=== PATIENT | female | born 2000 | race Caucasian/White ===

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

== ENCOUNTER 2019-03-17 04:49 | Observation (INO) ==
--- NOTE | 2019-03-17 05:20 | Emergency Department Note ---
ED Disposition Condition on Discharge: Serious - Critical Care Critical Care Time: Yes Total Critical Care Time: 50 Vital system(s) involved:: Central Nervous System My critical care processes included: Assessment & monitoring of V/S, Initial and Re-exams, Data Review/Interpretation, Coordinating Care, Medication Orders and management, Documentation <CarlozdianaBradley - Last Filed: 03/17/19 08:12> Time of Disposition: 09:17 - Critical Care Critical Care Time: No <Chato Manjarrez - Last Filed: 03/17/19 09:18> Clinical Impression: Meningitis Disposition: Admitted as Observation Referrals: Provider,Referral, [Primary Care Provider] - Attestation: On 03/17/19, the high probability of a clinically significant, sudden or life threatening deterioration of the following system(s) required my full and direct attention, intervention and personal management. The time I documented below is in addition to time spent performing reported procedures but includes the following listed in this critical care notation. Medical Decision Making - Horace Inquiry Pt receiving controlled substance: Yes Horace was queried for this patient: No Reason not queried -: Emergent pt cond-no time Risks and benefits of using a controlled substance: were not discussed with pt by me - Lab Data Result diagrams: 03/17/19 05:15 03/17/19 05:15 - Radiology Data #1 Image(s): Chest Image Reviewed: Yes I reviewed the patient's radiology image Preliminary Findings: Normal/NAD - Physician Consults Physician Consulted: Abel [facility] Time: 08:00 Reason -: Transfer to another facilty Comment/Response: is on diversion, cannot except transfer. records coordinator will not even put her on a wait list because they do not expect beds for days. Additional Consult: Audi dawson Ho[facility] Time: 08:05 Reason -: Transfer to another facilty Comment/Response: Accepts patient for transfer, but bed availability is pending discharges. They will call back when a bed becomes available. It may be this afternoon. Additional Consult: Swapnil Fuentes [facility] Time: 08:10 Reason -: Transfer to another facilty Comment/Response: Accepts patient, but they are currently at capacity. They will call back when a bed is available. <Bradley Son - Last Filed: 03/17/19 08:12> - Lab Data Lab results reviewed: Yes: I reviewed the patient's lab results. Result diagrams: 03/17/19 05:15 03/17/19 05:15 <JosselineChato ramirez - Last Filed: 03/17/19 09:18> Vital Signs: 03/17/19 04:49 03/17/19 05:19 03/17/19 05:49 Temperature 98.2 F Temperature Source Rectal Pulse Rate [Right Radial] 100 H 101 H 85 Respiratory Rate 28 H 16 Blood Pressure [Right Arm] 172/100 H 164/93 H 154/91 H Blood Pressure Mean [Right Arm] 124 116 112 Blood Pressure Source [Right Arm] Blood Pressure Position [Right Arm] 02 Sat by Pulse Oximetry 100 96 99 Oxygen Delivery Method Room Air Room Air Nasal Cannula Oxygen Flow Rate (LPM) 6 03/17/19 06:02 03/17/19 06:53 03/17/19 07:00 Temperature 98.8 F Temperature Source Axillary Pulse Rate [Right Radial] 80 71 121 H Respiratory Rate 19 16 24 Blood Pressure [Right Arm] 164/91 H 107/65 L Blood Pressure Mean [Right Arm] 115 79 Blood Pressure Source [Right Arm] Blood Pressure Position [Right Arm] 02 Sat by Pulse Oximetry 97 99 100 Oxygen Delivery Method Nasal Cannula Nasal Cannula Room Air Oxygen Flow Rate (LPM) 4 4 03/17/19 08:06 Temperature Temperature Source Pulse Rate [Right Radial] 119 H Respiratory Rate Blood Pressure [Right Arm] 90/33 L Blood Pressure Mean [Right Arm] 52 Blood Pressure Source [Right Arm] Automatic Cuff Blood Pressure Position [Right Arm] Right Lateral 02 Sat by Pulse Oximetry Oxygen Delivery Method Oxygen Flow Rate (LPM) - Lab Data Lab Results 03/17/19 05:15: WBC 9.6 D, RBC 5.26, Hgb 15.6, Hct 46.6, MCV 88.7, MCH 29.6, MCHC 33.4, RDW 12.9, Plt Count 236, MPV 11.7 H, Neut % (Auto) 49.8, Lymph % (Auto) 40.8, [place] % (Auto) 4.2, Eos % (Auto) 4.6, Baso % (Auto) 0.7, Neut # (Auto) 4.8, Lymph # (Auto) 3.9, [place] # (Auto) 0.4, Eos # (Auto) 0.4, Baso # (Auto) 0.1 03/17/19 05:15: Sodium 141, Potassium 3.6, Chloride 105, Carbon Dioxide 21, Anion Gap 18.6 H, BUN 10, Creatinine 1.11 H, Estimated Creat Clear 104, Estimated GFR 63, Est GFR ( Amer) 77, Glucose 112 H, Calcium 9.4, Total Bilirubin 0.6, AST 12 L, ALT 24, Alkaline Phosphatase 103, Total Protein 7.8, Albumin 4.0, Globulin 3.8 H, Albumin/Globulin Ratio 1.1, Salicylates 8.0, Acetaminophen 0 L, Plasma/Serum Alcohol 0 03/17/19 05:15: Lactate 1.6 03/17/19 05:38: Urine HCG, Qual Negative 03/17/19 05:38: Urine Opiates Screen Negative, Urine Methadone Screen Negative, Ur Barbituates Screen Negative, Ur Phencyclidine Scrn Negative, Ur Amphetamines Screen Negative, U Benzodiazepines Scrn Negative, Urine Cocaine Screen Positive H, U Marijuana (THC) Screen Positive H 03/17/19 05:55: CSF Volume 4, CSF Appearance Clear, CSF WBC 513 H, CSF RBC 2, CSF Mononuclear WBCs % 100, CSF Polynuclear WBCs % 0 03/17/19 05:55: CSF Glucose 62, CSF Total Protein 98.6 H Orders (Tests/Meds): ED MEDICATIONS Generic Name Dose Route Start Last Admin Trade Name Freq PRN Reason Stop Dose Admin Dexamethasone Sodium Phosphate 10 mg 03/17/19 14:00 Decadron 4mg/Ml 5ml Mdv IV 04/16/19 13:59 Q6H HOSEA Ceftriaxone Sodium 2 gm/ 100 mls @ 200 mls/hr 03/17/19 07:45 03/17/19 08:16 Sodium Chloride IV 03/31/19 07:44 200 mls/hr Q24H HOSEA Administration Protocol Vancomycin HCl 1,250 mg/ 250 mls @ 125 mls/hr 03/17/19 09:00 Sodium Chloride IV 03/31/19 08:59 Q12H HOSEA Acyclovir Sodium 800 mg/ 250 mls @ 250 mls/hr 03/17/19 16:00 Sodium Chloride IV 03/24/19 15:59 Q8H HOSEA Sodium Chloride 10 ml 03/17/19 05:41 03/17/19 09:08 Saline Flush 10ml Syringe IV 04/16/19 05:40 10 ml NEEDED PRN Administration Maintain IV Site Discontinued Medications Generic Name Dose Route Start Last Admin Trade Name Reji PRN Reason Stop Dose Admin Dexamethasone Sodium Phosphate 10 mg 03/17/19 07:34 03/17/19 07:50 Decadron 4mg/Ml 1ml Vial IV 03/17/19 07:35 10 mg ONCE ONE Administration Acyclovir Sodium 800 mg/ 250 mls @ 250 mls/hr 03/17/19 08:00 Sodium Chloride IV 03/17/19 08:59 ONCE ONE Ketamine HCl 60 mg 03/17/19 03:35 03/17/19 05:35 Ketamine 500mg/10ml Vial IV 03/17/19 03:36 60 mg ONCE ONE Administration Ketamine HCl 300 mg 03/17/19 04:55 03/17/19 04:55 Ketamine 500mg/10ml Vial IM 03/17/19 04:56 300 mg ONCE ONE Administration Lorazepam 1 mg 03/17/19 06:16 03/17/19 06:23 Ativan 2mg/Ml Vial IV 03/17/19 06:17 1 mg ONCE ONE Administration Lorazepam 1 mg 03/17/19 06:52 03/17/19 06:45 Ativan 2mg/Ml Vial IV 03/17/19 06:53 1 mg ONCE ONE Administration Lorazepam 1 mg 03/17/19 09:02 03/17/19 09:07 Ativan 2mg/Ml Vial IV 03/17/19 09:03 1 mg ONCE ONE Administration Miscellaneous 1 each 03/17/19 07:45 Vancomycin Consult Request * 04/16/19 07:44 [facility]ULT [facility] Sodium Chloride 1,000 ml 03/17/19 06:23 03/17/19 06:45 Sod Chlor 0.9% 1000ml Bag IV 03/17/19 06:24 1,000 ml BOLUS ONE Administration ORDERS Category Date Time Status Enterovirus,CSF PCR Routine Lab 03/17/19 08:07 Ordered Emre-Kenny Virus CSF/WB PCR Routine Lab 03/17/19 08:07 Ordered HSV 1/2 PCR, (CSF,WB,SERUM) Routine Lab 03/17/19 08:07 Ordered Blood Culture Stat Micro 03/17/19 05:15 Received CSF Culture & Gram Stain Stat Micro 03/17/19 05:55 Results - Physician Consults Other Consultation(s): [facility], accepts patient but is on bed availability delay. " It might be afternoon". Physician was Dr. Sachin Escudero came through the ED and is willing to admit her here. (Chato Manjarrez) Medical Decision Narrative: 8:00 AM: At shift change, I have discussed the patient with Dr. Manjarrez, who w ill assume care of the patient at this time. I have discussed all clinical information including history, physical and diagnostic study results. Preliminary diagnoses based on information available at this point have been recorded by me. Controlled substance administration and critical care statement are also preliminary, as of the time of handoff. (Bradley Son) General Adult HPI - General Mode of Arrival: EMS Limitations: No Limitations Description of Symptoms (Recalled from ER Triage Doc. by RN): pt arrives accompanied by pd. pt mother reports she started "flipping out" at approx 0330 this am. patient is out of control, verbally and physically violent with staff. completely non cooperative <Bradley Son - Last Filed: 03/17/19 08:12> <Chato Manjarrez - Last Filed: 03/17/19 09:18> - General Chief complaint: Altered Mental Status Stated complaint: Altered Mental Status Time Seen by Provider: 03/17/19 04:50 - History of Present Illness HPI narrative: Brought in by police and EMS. According to the boyfriend the patient awakened out of sleep tonight hysterical and crying. Patient is unable to give any history herself. When asked if she hurts anywhere she states that her back hurts and points to her lower back. She was seen in this emergency department yesterday morning for a migraine which she had had for 4 days. Boyfriend says that she has had migraines before, but never anything like this. She has never had a headache that lasted for days. She has been taking [id number] medications without relief. He says that she has been burning up, hot and sweaty, but temperature not taken. She has had some coughing, rhinorrhea, and vomited once. She had a negative head CAT scan and unremarkable blood work in the emergency department yesterday, no fever, and was treated with a "migraine cocktail". He says that she smokes marijuana, but otherwise no drug use, no alcohol use. She had a baby 4 months ago. No prescription medications. (Bradley Son) - Related Data Home Medications Medication Instructions Recorded Confirmed No Known Home Medications 03/16/19 03/17/19 Allergies Allergy/AdvReac Type Severity Reaction Status Date / Time latex Allergy Mild Verified 03/17/19 04:54 [facility] History - Hepatitis A Screen Drug use history?: Yes High risk sexual behaviors?: No History of sexually transmitted infection?: No Currently employed?: No Childcare worker?: No Do you have indoor plumbing?: Yes Do you have electricity?: Yes I have reviewed the patient's past medical history: Yes Medical History: Reports:: Anxiety, Asthma, Depression Denies:: Cancer, Diabetes Mellitus Type 1, Diabetes Mellitus Type 2, Gastroesophageal Reflux Disease(GERD), MRSA, Seizures Other Medical History: Denies: Anemia, Arthritis Comment: Complains about hip pain during , Other Surgeries: Yes: No Previous Surgery. No: Amputation: No Fractures: No Comment: wisdom teeth - Social History Smoking Status: Current every day smoker Tobacco Type: cigarettes # Packs/Day (cigarettes): 1 #Yrs smoked (if former smoker): 1 Alcohol Intake: never Substance Use Type: marijuana Occupational Status: unemployed, student Housing: apartment Household Members: significant other - Psychiatric History Expresses thoughts of harming self/others: None Suicide Plan Description: No Plan Pschychiatric History:: Reports:: Anxiety, Depression Family Hx:: Coronary Artery Disease, Diabetes, Hyperlipidemia Comment: LMP 2 weeks ago; periods are regular and of normal flow <Bradley Son - Last Filed: 03/17/19 08:12> - Hepatitis A Screen Attestation statement:: This patient has been screened for Hepatitis A risk factors. ROS Obtained: Yes unobtainable due to mental status <Bradley Son - Last Filed: 03/17/19 08:12> Physical Exam - General General appearance: alert - Head Head exam: atraumatic, normocephalic - Neck Neck exam: Present: normal inspection, trachea midline - Chest Chest inspection: Present: normal inspection, symmetric chest wall rise - Respiratory Respiratory exam: Present: normal lung sounds bilaterally. Absent: respiratory distress - Cardiovascular Cardiovascular exam: Present: regular rate, normal rhythm, normal heart sounds - Abdominal Exam Abdominal exam: Present: soft - Extremities Exam Extremities exam: Present: normal inspection - Neurological Exam Neurological exam: Present: alert - Psychiatric Psychiatric exam: Present: agitated, anxious - Skin Skin exam: Present: warm, dry. Absent: rash <Bradley Son - Last Filed: 03/17/19 08:12> - General Comment: Combative and hysterical. Stating "Oh my fucking god", "Just leave me the fuck alone". Fights when any examination or vital signs attempted. (Bradley Son) Procedures - Procedural Sedation Indication: other ASA Class: I Preparation: monitoring coordinator applied, pulse oximeter, supplemental O2 applied, suction/airway equipment at bedside, IV secured Ketamine: IV, IM Ketamine dose (mg): 80 (300 IM to obtain IV, 80 IV for LP) Patient Tolerated Procedure: well Complications: none <Bradley Son - Last Filed: 03/17/19 08:12> - Miscellaneous Procedure Procedure Performed: Lumbar Puncture Performed by: BRADLEY SON Consent: Consent obtained: Verbal Consent given by: Patient Risks discussed: Bleeding, headache, infection, pain and repeat procedure Alternatives discussed: No treatment Pre-procedure details: Procedure purpose: Diagnostic Preparation: Patient was prepped and draped in usual sterile fashion Procedure details: Lumbar space: L3-L4 interspace Patient position: Left lateral decubitus Needle gauge: 22 Needle type: [place] Needle length (in): 3.5 Number of attempts: 1 Fluid appearance: Clear Tubes of fluid: 4 Total volume (ml): 6 Post-procedure: Puncture site: Direct pressure applied Patient tolerance of procedure: Tolerated well, no immediate complications (Bradley Son)
[2019-03-17 05:54] LABS: Basophils # 0.1 K/mm3 (0-0.2); Basophils % 0.7 % (0.1-2.0); Eosinophils # 0.4 K/mm3 (0.0-0.4); Eosinophils % 4.6 % (0.1-12.0); Hematocrit 46.6 % (37.0-47.0); Hemoglobin 15.6 g/dL (12.2-16.2); Lymphocytes # 3.9 K/mm3 (0.7-4.5); Lymphocytes % 40.8 % (10-50); Mean Corpuscular HGB Conc 33.4 g/dL (31.8-35.4); Mean Corpuscular Hemoglobin 29.6 pg (27.0-31.2); Mean Corpuscular Volume 88.7 fl (81-99); Mean Platelet Volume 11.7 fl (7.4-10.4); Monocytes # 0.4 K/mm3 (0.1-1.0); Monocytes % 4.2 % (1.7-9.3); Neutrophils # 4.8 K/mm3 (1.8-7.8); Neutrophils % 49.8 % (37.0-80.0); Platelet Count 236 K/mm3 (142-424); Red Blood Count 5.26 M/mm3 (4.20-5.40); Red Cell Distribution Width 12.9 % (11.5-17.5); White Blood Count 9.6 K/mm3 (4.5-13.0)
[2019-03-17 06:07] LABS: Albumin/Globulin Ratio 1.1 (1.1-1.8); Anion Gap 18.6 mEq/L (5-15); Bilirubin,Total 0.6 mg/dL (0.2-1.0); Calcium 9.4 mg/dL (8.5-10.1); Globulin 3.8 gm/dl (1.3-3.2); Potassium 3.6 mmoL/L (3.5-5.1); Total Protein,Serum 7.8 gm/dL (6.4-8.2)
[2019-03-17 06:14] LABS: Amphetamine/Metha Screen,Urine Negative ng/mL (<1000); Barbiturates Screen,Urine Negative ng/mL (<200); Benzodiazepines Screen,Urine Negative ng/mL (<200); Cannabinoid Screen,Urine Positive ng/mL (<50); Cocaine Screen,Urine Positive ng/mL (<300); Methadone Screen,Urine Negative ng/mL (<300); Opiate Screen,Urine Negative ng/mL (<300); Phencyclidine Screen,Urine Negative ng/mL (<25)
[2019-03-17 06:34] LABS: Total Protein,CSF 98.6 mg/dL (15-45)
[2019-03-17 07:29] LABS: Appearance,CSF Clear (Clear); Red Blood Cell,CSF 2 cells/uL (0); White Blood Cell,CSF 513 cells/uL (0-5)
[2019-03-17 08:40] LABS: Polynuclear WBCs,CSF 0 %
--- NOTE | 2019-03-17 10:53 | Pharmacy Consult Notes ---
- Pharmacy Consult Date: 03/17/19 Time: 10:52 Referring provider: DR. KING Reason for Consult:: VANCOMYCIN DOSING Allergies and ADEs:: Allergies Allergy/AdvReac Type Severity Reaction Status Date / Time latex Allergy Mild Verified 03/17/19 04:54 Home Medications:: Home Medications Medication Instructions Recorded Confirmed Type Albuterol Sulfate [Albuterol HFA 1 - 2 puffs IH Q4-6H PRN 03/17/19 03/17/19 History Inhaler] Height: 1.55 m Weight: 84.17 kg Laboratory Results:: Laboratory Results - last 24 hr 03/17/19 05:15: WBC 9.6 D, RBC 5.26, Hgb 15.6, Hct 46.6, MCV 88.7, MCH 29.6, MCHC 33.4, RDW 12.9, Plt Count 236, MPV 11.7 H, Neut % (Auto) 49.8, Lymph % (Auto) 40.8, [place] % (Auto) 4.2, Eos % (Auto) 4.6, Baso % (Auto) 0.7, Neut # (Auto) 4.8, Lymph # (Auto) 3.9, [place] # (Auto) 0.4, Eos # (Auto) 0.4, Baso # (Auto) 0.1 03/17/19 05:15: Sodium 141, Potassium 3.6, Chloride 105, Carbon Dioxide 21, Anion Gap 18.6 H, BUN 10, Creatinine 1.11 H, Estimated Creat Clear 104, Estimated GFR 63, Est GFR ( Amer) 77, Glucose 112 H, Calcium 9.4, Total Bilirubin 0.6, AST 12 L, ALT 24, Alkaline Phosphatase 103, Total Protein 7.8, Albumin 4.0, Globulin 3.8 H, Albumin/Globulin Ratio 1.1, Salicylates 8.0, Acetaminophen 0 L, Plasma/Serum Alcohol 0 03/17/19 05:15: Lactate 1.6 03/17/19 05:38: Urine HCG, Qual Negative 03/17/19 05:38: Urine Opiates Screen Negative, Urine Methadone Screen Negative, Ur Barbituates Screen Negative, Ur Phencyclidine Scrn Negative, Ur Amphetamines Screen Negative, U Benzodiazepines Scrn Negative, Urine Cocaine Screen Positive H, U Marijuana (THC) Screen Positive H 03/17/19 05:55: CSF Volume 4, CSF Appearance Clear, CSF WBC 513 H, CSF RBC 2, CSF Mononuclear WBCs % 100, CSF Polynuclear WBCs % 0 03/17/19 05:55: CSF Glucose 62, CSF Total Protein 98.6 H Medical History: Reports:: Anxiety, Asthma, Depression Denies:: Cancer, Diabetes Mellitus Type 1, Diabetes Mellitus Type 2, Gastroesophageal Reflux Disease(GERD), MRSA, Seizures Assessment and Plan - Assessment and plan all Dx Assessment and Plan for all problems:: BASED ON PATIENT FACTORS, RECOMMEND INITIATING VANCOMYCIN IV AT 1,250MG EVERY 12 HOURS. PHARMACY WILL CONTINUE TO MONITOR AND WILL ADJUST DOSE APPROPRIATE. -JAMISON REYNOLDS, IMELDAD
[2019-03-17 10:59] LABS: Mononuclear WBCs,CSF 100 %
--- NOTE | 2019-03-17 10:59 | Pharmacy Consult Notes ---
[facility] Pharmacy VTE Monitoring - Patient Demographics Admission date: 03/17/19 Report Date: 03/17/19 Time: 10:58 Allergies/Adverse Reactions: Patient Allergies latex Allergy (Mild, Verified 03/17/19 04:54) Height: 1.55 m Weight: 84.17 kg Patient Problems: Current Active Problems Meningitis (Acute) - VTE Risk Labs: VTE Related Lab Results Hgb 15.6 g/dL (12.2-16.2) 03/17/19 05:15 Hct 46.6 % (37.0-47.0) 03/17/19 05:15 Plt Count 236 K/mm3 (142-424) 03/17/19 05:15 BUN 10 mg/dL (7-18) 03/17/19 05:15 Creatinine 1.11 mg/dL (0.55-1.02) H 03/17/19 05:15 Estimated Creat Clear 104 mL/min (50-200) 03/17/19 05:15 Was VTE Risk Assessment Performed: Yes VTE Score: 1 VTE Risk Level: Very Low Risk - Prophylaxis VTE Prophylaxis Ordered?: Yes Types of VTE Prophylaxis: TEDS Knee High Location of Applied Device: Bilateral Lower Extremeties - VTE Diagnosis Confirmed Treatment or plan recommended: Continue Current Treatment
[2019-03-17 15:35] VITALS: BP 128/62
--- NOTE | 2019-03-17 16:21 | H&P/Discharge Summary ---
General - General Admission date:: 03/17/19 Discharge date: 03/17/19 *Admission Date: 03/17/19 *Chief complaint: confusion *History of present illness: this wf was seen in the ed 1 day officer captain with her typical migraine with stable vs and nl head ct - treated as migraine and felt better - she did state it had been for 4 days and was somewhat different but no fever or focal changes -please see my ed note for labs and ct results - she left improved . According to the boyfriend the patient awakened out of sleep tonight hysterical and crying. Patient is unable to give any history herself. When asked if she hurts anywhere she states that her back hurts and points to her lower back. She was seen in this emergency department yesterday morning for a migraine which she had had for 4 days. Boyfriend says that she has had migraines before, but never anything like this. She has never had a headache that lasted for days. She has been taking [id number] medications without relief. He says that she has been b urning up, hot and sweaty, but temperature not taken. She has had some coughing, rhinorrhea, and vomited once. She had a negative head CAT scan and unremarkable blood work in the emergency department yesterday, no fever, and was treated with a "migraine cocktail". He says that she smokes marijuana, but otherwise no drug use, no alcohol use. She had a baby 4 months ago. No prescription medications. t arrives accompanied by pd. pt mother reports she started "flipping out" at approx 0330 this am. patient is out of control, verbally and physically violent with staff. completely non cooperative she was found to have abn lumbar puncture and uds later and was attempted to transfer last pm bur no beds and because of prob viral nature of lumbar puncture and concern for pt was admitted after i saw her this am- she was ox3 but still a little confused - [facility] History I have reviewed the patient's past medical history: Yes Medical History: Reports:: Anxiety, Asthma, Depression Denies:: Cancer, Diabetes Mellitus Type 1, Diabetes Mellitus Type 2, Gastroesophageal Reflux Disease(GERD), MRSA, Seizures *Have you ever received a pneumonia vaccine?: No *Have you received a flu vaccine this season?: No Other Medical History: Denies: Anemia, Arthritis Other Surgeries: Yes: No Previous Surgery, Appendectomy, Other (wisdom teeth extraction). No: Amputation: No Fractures: No - *Social History Educational Level: Attended High School Smoking Status: Current every day smoker Tobacco Type: cigarettes # Packs/Day (cigarettes): 1 #Yrs smoked (if former smoker): 1 Alcohol Intake: never Substance Use Type: marijuana *Occupational Status:: student Housing: apartment Household Members: significant other *Travel in the last 8 weeks: None - Psychiatric History Expresses thoughts of harming self/others: None Suicide Plan Description: No Plan Pschychiatric History:: Reports:: Anxiety, Depression Family Hx:: Coronary Artery Disease, Diabetes, Hyperlipidemia Review of Systems - Review of Systems Review of systems:: pertinent systems reviewed and negative unless documented below - Constitutional Reports body ache(s), Reports other (confusion), Denies fever(s) - Eyes Denies change in vision - ENT Denies sore throat - *Cardiovascular Denies chest pain - *Respiratory Denies cough - *Gastrointestinal Denies abdominal pain, Denies vomiting - *Genitourinary Denies blood in urine, Denies vaginal discharge - *Musculoskeletal Reports back pain, Denies joint pain, Denies joint swelling, Denies neck pain - Integumentary/Breasts Denies rash - *Neurologic Reports confusion, Reports headache(s), Denies abnormal movements, Denies loss of vision, Denies seizure-like activity - Psychiatric Reports confusion Exam Vital signs and Labs for Last 24 Hours: Temp Pulse Resp BP Pulse Ox 98.5 F 127 H 18 128/62 98 03/17/19 15:34 03/17/19 15:34 03/17/19 15:34 03/17/19 15:34 03/17/19 15:34 Laboratory Results - last 24 hr 03/17/19 05:15: WBC 9.6 D, RBC 5.26, Hgb 15.6, Hct 46.6, MCV 88.7, MCH 29.6, MCHC 33.4, RDW 12.9, Plt Count 236, MPV 11.7 H, Neut % (Auto) 49.8, Lymph % (Auto) 40.8, Fannin % (Auto) 4.2, Eos % (Auto) 4.6, Baso % (Auto) 0.7, Neut # (Auto) 4.8, Lymph # (Auto) 3.9, Fannin # (Auto) 0.4, Eos # (Auto) 0.4, Baso # (Auto) 0.1 03/17/19 05:15: Sodium 141, Potassium 3.6, Chloride 105, Carbon Dioxide 21, Anion Gap 18.6 H, BUN 10, Creatinine 1.11 H, Estimated Creat Clear 104, Estimated GFR 63, Est GFR ( Amer) 77, Glucose 112 H, Calcium 9.4, Total Bilirubin 0.6, AST 12 L, ALT 24, Alkaline Phosphatase 103, Total Protein 7.8, Albumin 4.0, Globulin 3.8 H, Albumin/Globulin Ratio 1.1, Salicylates 8.0, Acetaminophen 0 L, Plasma/Serum Alcohol 0 03/17/19 05:15: Lactate 1.6 03/17/19 05:38: Urine HCG, Qual Negative 03/17/19 05:38: Urine Opiates Screen Negative, Urine Methadone Screen Negative, Ur Barbituates Screen Negative, Ur Phencyclidine Scrn Negative, Ur Amphetamines Screen Negative, U Benzodiazepines Scrn Negative, Urine Cocaine Screen Positive H, U Marijuana (THC) Screen Positive H 03/17/19 05:55: CSF Volume 4, CSF Appearance Clear, CSF WBC 513 H, CSF RBC 2, CSF Mononuclear WBCs % 100, CSF Polynuclear WBCs % 0 03/17/19 05:55: CSF Glucose 62, CSF Total Protein 98.6 H I & O for Last 24 hours: Intake & Output 03/15/19 03/16/19 03/17/19 03/18/19 11:59 11:59 11:59 11:59 Intake Total 759 / 759 Output Total 500 / 500 Balance 259 / 259 Weight 185 lb 9 oz Microbiology Reports for the Last 24 Hours: Microbiology 03/17/19 05:55 Cerebral Spinal Fluid Gram Stain - Final - Constitutional no acute distress, obese, agitated - *Routine HEENT Exam Head: Present: normocephalic Eye: Present: EOMI, PERRL. Absent: conjunctival icterus ENT: Present: mucous membranes dry - *Routine Neck Exam Present: trachea midline Comments: had lt sided neck iv - diff to test rom - *Routine Respiratory Exam Present: CTA bilaterally - *Routine Cardiovascular Exam Present: RRR. Absent: murmur - *Routine Abdominal Exam Present: soft - *Routine Extremities Exam Absent: calf tenderness - *Routine Skin Exam Present: intact - *Routine Neurological Exam Present: alert, CN II-XII intact, altered mental status. Absent: motor deficit, nystagmus, fasciculations - Routine Psychiatric Exam Present: unable to assess Hospital Course Hospital Course: pt was admitted with iv fluids and awaiting transfer to facility with neuro and inf disease -and covered with broad spectrum abx till cultures returned - she was accepted at [facility] and will be transferred Results Labs on day of discharge: Labs from last 24 hours 03/17/19 03/17/19 03/17/19 05:55 05:55 05:38 WBC RBC Hgb Hct MCV MCH MCHC RDW Plt Count MPV Neut % (Auto) Lymph % (Auto) Fannin % (Auto) Eos % (Auto) Baso % (Auto) Neut # (Auto) Lymph # (Auto) Fannin # (Auto) Eos # (Auto) Baso # (Auto) Sodium Potassium Chloride Carbon Dioxide Anion Gap BUN Creatinine Estimated Creat Clear Estimated GFR Est GFR ( Amer) Glucose Lactate Calcium Total Bilirubin AST ALT Alkaline Phosphatase Total Protein Albumin Globulin Albumin/Globulin Ratio Urine HCG, Qual CSF Volume 4 CSF Appearance Clear CSF WBC 513 H CSF RBC 2 CSF Mononuclear WBCs % 100 CSF Polynuclear WBCs % 0 CSF Glucose 62 CSF Total Protein 98.6 H Salicylates Urine Opiates Screen Negative Urine Methadone Screen Negative Acetaminophen Ur Barbituates Screen Negative Ur Phencyclidine Scrn Negative Ur Amphetamines Screen Negative U Benzodiazepines Scrn Negative Urine Cocaine Screen Positive H U Marijuana (THC) Screen Positive H Plasma/Serum Alcohol 03/17/19 03/17/19 03/17/19 05:38 05:15 05:15 WBC RBC Hgb Hct MCV MCH MCHC RDW Plt Count MPV Neut % (Auto) Lymph % (Auto) Fannin % (Auto) Eos % (Auto) Baso % (Auto) Neut # (Auto) Lymph # (Auto) Fannin # (Auto) Eos # (Auto) Baso # (Auto) Sodium 141 Potassium 3.6 Chloride 105 Carbon Dioxide 21 Anion Gap 18.6 H BUN 10 Creatinine 1.11 H Estimated Creat Clear 104 Estimated GFR 63 Est GFR ( Amer) 77 Glucose 112 H Lactate 1.6 Calcium 9.4 Total Bilirubin 0.6 AST 12 L ALT 24 Alkaline Phosphatase 103 Total Protein 7.8 Albumin 4.0 Globulin 3.8 H Albumin/Globulin Ratio 1.1 Urine HCG, Qual Negative CSF Volume CSF Appearance CSF WBC CSF RBC CSF Mononuclear WBCs % CSF Polynuclear WBCs % CSF Glucose CSF Total Protein Salicylates 8.0 Urine Opiates Screen Urine Methadone Screen Acetaminophen 0 L Ur Barbituates Screen Ur Phencyclidine Scrn Ur Amphetamines Screen U Benzodiazepines Scrn Urine Cocaine Screen U Marijuana (THC) Screen Plasma/Serum Alcohol 0 03/17/19 05:15 WBC 9.6 D RBC 5.26 Hgb 15.6 Hct 46.6 MCV 88.7 MCH 29.6 MCHC 33.4 RDW 12.9 Plt Count 236 MPV 11.7 H Neut % (Auto) 49.8 Lymph % (Auto) 40.8 Fannin % (Auto) 4.2 Eos % (Auto) 4.6 Baso % (Auto) 0.7 Neut # (Auto) 4.8 Lymph # (Auto) 3.9 Fannin # (Auto) 0.4 Eos # (Auto) 0.4 Baso # (Auto) 0.1 Sodium Potassium Chloride Carbon Dioxide Anion Gap BUN Creatinine Estimated Creat Clear Estimated GFR Est GFR ( Amer) Glucose Lactate Calcium Total Bilirubin AST ALT Alkaline Phosphatase Total Protein Albumin Globulin Albumin/Globulin Ratio Urine HCG, Qual CSF Volume CSF Appearance CSF WBC CSF RBC CSF Mononuclear WBCs % CSF Polynuclear WBCs % CSF Glucose CSF Total Protein Salicylates Urine Opiates Screen Urine Methadone Screen Acetaminophen Ur Barbituates Screen Ur Phencyclidine Scrn Ur Amphetamines Screen U Benzodiazepines Scrn Urine Cocaine Screen U Marijuana (THC) Screen Plasma/Serum Alcohol DS: Diagnosis - Discharge Diagnosis (1) Acute delirium Status: Acute (2) Meningitis Status: Acute (3) Obesity (BMI 30-39.9) Status: Acute (4) Cocaine abuse, unspecified Status: Acute (5) Marijuana use Status: Acute Discharge Medications - Medications for Discharge Home Medication List at Discharge: Discontinued Albuterol Sulfate [Albuterol HFA Inhaler] 1 - 2 puffs IH Q4-6H PRN PRN Reason: Shortness Of Breath Or Wheezing Disposition Disposition: Xfer Short-Term Hosp
== END 2019-03-17 18:45 | disposition left against medical advice (07) | DRG 99 ==
LOC: ER 04:49 → 2ND 09:25 → INTOOBSV 10:05 → 2ND 10:06
PROVIDERS: ADMIT Emergency Medicine; ATTEND Emergency Medicine
CPT/HCPCS: 62270; 70450; 71010; 71045; 80053; 80305; 80329; 81001; 81025; 82945; 83605; 84155; 85025; 87040; 87070; 87205; 87498; 87529; 87798; 89051; 96365; 96367; 96375; 96376; 99284; 99285; G0378; J2405; J3370

== ENCOUNTER → 2019-09-22 14:49 | Outpatient (CLI) | payer OTHER, SELFPAY | PROVIDERS: Visit Provider Nurse Practitioner Obstetrics & Gynecology | DX: Z34.90 Encounter for supervision of normal pregnancy, unspecified, unspecified trimester (principal) | CPT/HCPCS: 36415; 84702 ==

== ENCOUNTER → 2019-10-13 17:23 | Outpatient (CLI) | payer OTHER, SELFPAY ==
[2019-10-15 21:13] LABS: Neisseria gonorrhoeae, NAA Negative (Negative)
== END ==
PROVIDERS: Visit Provider Obstetrics & Gynecology
DX: Z34.90 Encounter for supervision of normal pregnancy, unspecified, unspecified trimester (principal)
CPT/HCPCS: 87491; 87591

== ENCOUNTER → 2019-10-20 12:48 | Outpatient (CLI) | payer OTHER, SELFPAY ==
--- NOTE | 2019-10-20 12:50 | US_ITS ---
PROCEDURE: US OB >= 14 WEEKS FETUS CLINICAL INDICATION: US OB Dates COMPARISON: OBBIO US OB biophysical profile from 11/13/2018 FINDINGS: There is a single live intrauterine gestation present. heart tones are noted within FHR 152 beats per minute. BPD 14 weeks 1 day. OFD 40 weeks 1 day, HC 14 weeks 0 days, AC 13 weeks 4 days, FL 12 weeks 4 days. Average ultrasound age is 13 weeks 3 days. Estimated due date by ultrasound is 04/23/2020. There is a 2 cm right corpus luteum cyst. IMPRESSION: Live IUP at 13 weeks 3 days Estimated due date by Ultrasound is 04/23/2020 Dictated by: Tuan Lundberg MD 10/20/2019 19:45 Electronically signed by Tuan Lundberg MD in [place] 10/20/2019 19:46
== END ==
PROVIDERS: PCP Physician Assistant; Visit Provider Obstetrics & Gynecology
DX: O26.841 Uterine size-date discrepancy, first trimester (principal)
CPT/HCPCS: 76805

== ENCOUNTER → 2019-12-07 13:40 | Outpatient (CLI) | payer OTHER, SELFPAY ==
--- NOTE | 2019-12-07 13:40 | US_ITS ---
PROCEDURE: US OB /MATERNAL DETAIL CLINICAL INDICATION: US OB Complete Anatomy exam COMPARISON: US OB >= 14 WEEKS FETUS from 10/20/2019 FINDINGS: Single viable intrauterine gestation. Cephalic position. Placenta: Posteriorplacenta grade 1. There is average amount fluid. The cervix appears satisfactory. Closed and measuring 4 cm in length. Complete survey performed and was unremarkable on the submitted images as in PACS. No discrete anomalies identified on survey imaging by technologist. Active fetus. Three-vessel cord with satisfactory umbilical cord insertion. 4- chamber heart noted. Survey of brain & ventricles Unremarkable. Face and neck survey unremarkable. Diaphragm and chest views unremarkable. Abdomen: Both kidneys noted and unremarkable. Stomach noted and satisfactory. Spine: Survey of the spine satisfactory with no anomalies identified nor imaged. Both arms and legs noted. Amniotic Fluid: Adequate. Maternal adnexa: No significant findings. Measurements: Average ultrasound age 20weeks 1day. Gestational Age 20 weeks 6 days Estimated due date by ultrasound age 0504/24/2020. Estimated weight 342g BPD = 20weeks 2days OFD = 20 weeks 2 days HC = 19weeks 3days AC = 20weeks 3days FL = 20weeks 3days Growth Percentile= 17% Heart Rate = 146bpm Cerebellum = 20weeks 4days Humerus = 20weeks 3days HC/AC is 1.11 CI is 0.79 FL/BPD is 0.71 FL/AC is 0.22 IMPRESSION: There is a single live IUP in cephalic presentation. Average ultrasound age is 20 weeks 1 day. All parameters correlate with no obvious anomalies. Please see above for detail Dictated by: Tuan Lundberg MD 12/07/2019 15:40 Electronically signed by Tuan Lundberg MD in [place] 12/07/2019 15:40
== END ==
PROVIDERS: PCP Emergency Medicine; Visit Provider Obstetrics & Gynecology
DX: Z36.0 Encounter for antenatal screening for chromosomal anomalies (principal)
CPT/HCPCS: 76811

== ENCOUNTER → 2020-01-20 10:53 | Outpatient (CLI) | payer OTHER, SELFPAY ==
[2020-01-20 11:26] LABS: Basophils # 0.1 K/mm3 (0-0.2); Basophils % 0.4 % (0.1-2.0); Eosinophils # 0.3 K/mm3 (0.0-0.4); Hematocrit 38.1 % (37.0-47.0); Lymphocytes # 2.7 K/mm3 (0.7-4.5); Lymphocytes % 21.4 % (10-50); Mean Corpuscular HGB Conc 34.1 g/dL (31.8-35.4); Mean Corpuscular Hemoglobin 31.2 pg (27.0-31.2); Mean Corpuscular Volume 91.6 fl (81-99); Mean Platelet Volume 10.7 fl (7.4-10.4); Monocytes # 0.3 K/mm3 (0.1-1.0); Monocytes % 2.5 % (1.7-9.3); Neutrophils # 9.1 K/mm3 (1.8-7.8); Neutrophils % 73.6 % (37.0-80.0); Platelet Count 239 K/mm3 (142-424); Red Blood Count 4.16 M/mm3 (4.20-5.40); Red Cell Distribution Width 13.7 % (11.5-17.5); White Blood Count 12.3 K/mm3 (4.5-13.0)
[2020-01-21 10:37] LABS: HIV Screen 4th Generation wRfx Non Reactive (Non Reactive); Hepatitis B Surface Antigen Negative (Negative); Hepatitis C Antibody <0.1 s/co ratio (0.0-0.9); Rubella Antibodies, IgG 3.01 index (Immune >0.99)
[2020-01-21 12:03] LABS: Rapid Plasma Reagin Ab Titer Non Reactive (NonRea<1:1)
== END ==
PROVIDERS: Visit Provider Obstetrics & Gynecology
DX: Z34.90 Encounter for supervision of normal pregnancy, unspecified, unspecified trimester (principal)
CPT/HCPCS: 36415; 85025; 86592; 86703; 86762; 86850; 87340; 87380; G0432

== ENCOUNTER → 2020-01-31 12:54 | Outpatient (CLI) | payer OTHER, SELFPAY ==
[2020-01-31 15:08] LABS: Glucose,Fasting 88 mg/dl (74-100)
[2020-01-31 16:47] LABS: Glucose 1 Hour 92 mg/dL (74-100)
== END ==
PROVIDERS: Visit Provider Obstetrics & Gynecology
DX: Z34.90 Encounter for supervision of normal pregnancy, unspecified, unspecified trimester (principal)
CPT/HCPCS: 36415; 82951

== ENCOUNTER 2020-03-10 21:50 | Outpatient (CLI) | payer OTHER, SELFPAY ==
[2020-03-10 22:05] VITALS: BP 122/74; PULSE 101; RESP 18; TEMP 36.7; O2SAT 95; BMI 35.1
[2020-03-10 22:06] VITALS: BMI 35.1
[2020-03-10 22:22] LABS: Microscopic, Urine URINE MICROSCOPIC (MICROSCOPIC)
[2020-03-10 22:26] LABS: Appearance,Urine CLEAR (Clear); Bilirubin,Urine Negative (Negative); Blood, Urine Negative (Negative); Color,Urine YELLOW (Yellow); Glucose,Urine (UA) Negative (Negative); Ketones,Urine Negative (Negative); Leukocyte Esterase,Urine Negative (Negative); Nitrate,Urine Negative (Negative); Protein,Urine Negative (Negative); Urobilinogen,Urine 0.2 EU/dl (0.2)
[2020-03-10 22:38] LABS: Renal Epithelial Cells,Urine Occasional #/lpf (0)
[2020-03-10 22:48] LABS: Barbiturates Screen,Urine Negative ng/ml (<200); Benzodiazepines Screen,Urine Negative ng/ml (<200)
[2020-03-10 22:49] LABS: Amphetamine/Metha Screen,Urine Negative ng/ml (<1000)
[2020-03-10 22:50] LABS: Cannabinoid Screen,Urine Positive ng/ml (<50); Cocaine Screen,Urine Negative ng/ml (<300)
[2020-03-10 22:51] LABS: Methadone Screen,Urine Negative ng/ml (<300)
[2020-03-10 22:52] LABS: Opiate Screen,Urine Negative ng/ml (<300); Phencyclidine Screen,Urine Negative ng/ml (<25)
== END 2020-03-10 23:20 | disposition home or self-care (01) ==
LOC: OBOUT 21:56 → OB 21:56
PROVIDERS: PCP Obstetrics & Gynecology; Visit Provider Obstetrics & Gynecology
DX: O47.03 False labor before 37 completed weeks of gestation, third trimester (principal); Z3A.34 34 weeks gestation of pregnancy
CPT/HCPCS: 59025; 80305; 81001; G0463

== ENCOUNTER → 2020-03-20 09:50 | Outpatient (CLI) | payer OTHER, SELFPAY ==
--- NOTE | 2020-03-20 09:51 | US_ITS ---
PROCEDURE: US OB FOLLOW UP CLINICAL INDICATION: TOBACCO SMOKING Small for gestational age COMPARISON: US OB /MATERNAL DETAIL from 12/07/2019 FINDINGS: There is a single live fetus present which is in cephalic presentation. The cervix is closed at 3 cm. heart tones are present 153 beats per minute. Average ultrasound age is 32 weeks 5 days. Estimated weight is 2181 g which is 5th percentile indicating intrauterine growth restriction. The following parameters are obtained: BPD 32 weeks 4 days, OFD 29 weeks 5 days, HC 30 weeks 6 days, AC 34 weeks 4 days, FL 32 weeks 5 days. HC/AC is slightly low at 0.92. FL/BPD is normal at 78 percent. FL/AC is low normal at 21 percent. The placenta is posterior and lateral and is grade 3. The EILEEN is normal at 10 cm. IMPRESSION: Live IUP at 32 weeks 5 days with an estimated weight of 2181 g which is 5th percentile indicating intrauterine growth restriction The head measurements are slightly small compared to the abdominal circumference. Normal amniotic fluid volume at 10 cm Posterior and lateral grade 3 placenta Dictated by: Tuan Lundberg MD 03/20/2020 15:51 Electronically signed by Tuan Lundberg MD in [place] 03/20/2020 15:51
== END ==
PROVIDERS: PCP Obstetrics & Gynecology; Visit Provider Obstetrics & Gynecology
DX: O99.330 Smoking (tobacco) complicating pregnancy, unspecified trimester (principal); Z3A.35 35 weeks gestation of pregnancy
CPT/HCPCS: 76816

== ENCOUNTER → 2020-03-21 16:26 | Outpatient (CLI) | payer OTHER, SELFPAY ==
[2020-03-21 16:45] LABS: Benzodiazepines Screen,Urine Negative ng/ml (<200)
[2020-03-21 16:46] LABS: Amphetamine/Metha Screen,Urine Negative ng/ml (<1000)
[2020-03-21 16:47] LABS: Barbiturates Screen,Urine Negative ng/ml (<200); Cannabinoid Screen,Urine Negative ng/ml (<50)
[2020-03-21 16:48] LABS: Cocaine Screen,Urine Negative ng/ml (<300); Methadone Screen,Urine Negative ng/ml (<300)
[2020-03-21 16:49] LABS: Opiate Screen,Urine Negative ng/ml (<300)
[2020-03-21 16:50] LABS: Phencyclidine Screen,Urine Negative ng/ml (<25)
== END ==
PROVIDERS: Visit Provider Obstetrics & Gynecology
DX: Z34.90 Encounter for supervision of normal pregnancy, unspecified, unspecified trimester (principal)
CPT/HCPCS: 80305

== ENCOUNTER → 2020-03-28 16:58 | Outpatient (CLI) | payer OTHER, SELFPAY | PROVIDERS: Visit Provider Obstetrics & Gynecology | DX: Z34.90 Encounter for supervision of normal pregnancy, unspecified, unspecified trimester (principal) | CPT/HCPCS: 86403 ==

== ENCOUNTER 2020-04-02 12:28 | Outpatient (CLI) | payer OTHER, SELFPAY ==
[2020-04-02 12:40] VITALS: BMI 33.4
[2020-04-02 13:16] LABS: Microscopic, Urine URINE MICROSCOPIC (MICROSCOPIC)
[2020-04-02 13:17] LABS: Appearance,Urine CLEAR (Clear); Bilirubin,Urine Negative (Negative); Blood, Urine Negative (Negative); Color,Urine YELLOW (Yellow); Glucose,Urine (UA) Negative (Negative); Ketones,Urine Negative (Negative); Leukocyte Esterase,Urine 1+ (Negative); Nitrate,Urine Negative (Negative); Protein,Urine Negative (Negative)
[2020-04-02 13:30] LABS: Amphetamine/Metha Screen,Urine Negative ng/ml (<1000); Barbiturates Screen,Urine Negative ng/ml (<200)
[2020-04-02 13:31] LABS: Fetal Membrane Rupture (Rapid) Negative (Negative)
[2020-04-02 13:31] LABS: Benzodiazepines Screen,Urine Negative ng/ml (<200)
[2020-04-02 13:32] LABS: Cannabinoid Screen,Urine Positive ng/ml (<50)
[2020-04-02 13:33] LABS: Cocaine Screen,Urine Negative ng/ml (<300); Methadone Screen,Urine Negative ng/ml (<300)
[2020-04-02 13:34] LABS: Opiate Screen,Urine Negative ng/ml (<300)
[2020-04-02 13:35] LABS: Phencyclidine Screen,Urine Negative ng/ml (<25)
[2020-04-02 13:40] LABS: RBC,Urine Occasional #/hpf (0-3)
[2020-04-02 13:41] LABS: Bacteria,Urine Trace /lpf
[2020-04-02 15:13] VITALS: TEMP 36.3; BMI 33.4
== END 2020-04-02 15:10 | disposition home or self-care (01) ==
LOC: OBOUT 12:30 → OB 12:34
PROVIDERS: PCP Physician Assistant; Visit Provider Nurse Practitioner Obstetrics & Gynecology
DX: O47.03 False labor before 37 completed weeks of gestation, third trimester (principal); Z3A.37 37 weeks gestation of pregnancy
CPT/HCPCS: 59025; 80305; 81001; 84112; 87086; 96365; G0463

== ENCOUNTER 2020-04-02 18:34 | Outpatient (CLI) | payer OTHER, SELFPAY ==
[2020-04-02 19:14] VITALS: BMI 35.3
[2020-04-02 20:17] LABS: Basophils % 0.3 % (0.1-2.0); Eosinophils # 0.1 K/mm3 (0.0-0.4); Eosinophils % 0.6 % (0.1-12.0); Hematocrit 36.4 % (37.0-47.0); Hemoglobin 12.5 g/dL (12.2-16.2); Lymphocytes # 2.6 K/mm3 (0.7-4.5); Lymphocytes % 21.8 % (10-50); Mean Corpuscular HGB Conc 34.2 g/dL (31.8-35.4); Mean Corpuscular Hemoglobin 30.8 pg (27.0-31.2); Mean Corpuscular Volume 90.1 fl (81-99); Mean Platelet Volume 10.8 fl (7.4-10.4); Monocytes # 0.5 K/mm3 (0.1-1.0); Monocytes % 4.3 % (1.7-9.3); Neutrophils # 8.7 K/mm3 (1.8-7.8); Neutrophils % 72.9 % (37.0-80.0); Platelet Count 208 K/mm3 (142-424); Red Blood Count 4.04 M/mm3 (4.20-5.40); Red Cell Distribution Width 13.6 % (11.5-17.5); White Blood Count 11.9 K/mm3 (4.5-13.0)
[2020-04-02 21:24] VITALS: BP 104/63; PULSE 87; RESP 18; TEMP 36.7; O2SAT 98; BMI 35.3
== END 2020-04-02 21:48 | disposition home or self-care (01) | DRG 833 ==
LOC: OBOUT 04-11 09:19 → OB 04-11 09:19
PROVIDERS: Nurse Practitioner Obstetrics & Gynecology; PCP Obstetrics & Gynecology; Visit Provider Obstetrics & Gynecology
DX: O60.03 Preterm labor without delivery, third trimester (principal); Z3A.37 37 weeks gestation of pregnancy
CPT/HCPCS: 59025; 80305; 81001; 84112; 85025; 86850; 87086; 96365; G0463; J0290

== ENCOUNTER 2020-04-04 04:49 | Inpatient (IN) | payer OTHER, SELFPAY ==
[2020-04-04 04:57] VITALS: BMI 35.3
[2020-04-04 06:03] LABS: Microscopic, Urine URINE MICROSCOPIC (MICROSCOPIC)
[2020-04-04 06:17] LABS: Appearance,Urine CLEAR (Clear); Bilirubin,Urine Negative (Negative); Blood, Urine Negative (Negative); Color,Urine YELLOW (Yellow); Glucose,Urine (UA) Negative (Negative); Ketones,Urine Negative (Negative); Leukocyte Esterase,Urine 1+ (Negative); Nitrate,Urine Negative (Negative); Protein,Urine Negative (Negative); Specific Gravity, Urine 1.025 (1.005-1.030); Urobilinogen,Urine 0.2 EU/dl (0.2)
[2020-04-04 06:26] LABS: Basophils % 0.3 % (0.1-2.0); Eosinophils # 0.1 K/mm3 (0.0-0.4); Eosinophils % 0.8 % (0.1-12.0); Hematocrit 36.8 % (37.0-47.0); Hemoglobin 12.6 g/dL (12.2-16.2); Lymphocytes # 3.1 K/mm3 (0.7-4.5); Lymphocytes % 28.7 % (10-50); Mean Corpuscular HGB Conc 34.2 g/dL (31.8-35.4); Mean Corpuscular Hemoglobin 30.8 pg (27.0-31.2); Mean Platelet Volume 11.1 fl (7.4-10.4); Monocytes # 0.4 K/mm3 (0.1-1.0); Monocytes % 3.8 % (1.7-9.3); Neutrophils # 7.2 K/mm3 (1.8-7.8); Neutrophils % 66.4 % (37.0-80.0); Platelet Count 192 K/mm3 (142-424); Red Blood Count 4.09 M/mm3 (4.20-5.40); Red Cell Distribution Width 13.5 % (11.5-17.5); White Blood Count 10.9 K/mm3 (4.5-13.0)
[2020-04-04 06:30] LABS: Amphetamine/Metha Screen,Urine Negative ng/ml (<1000); Bacteria,Urine 1+ /lpf; Squamous Epithelial Cell,Urine 20-50 #/hpf (0-5); WBC,Urine TNTC #/hpf (0-3)
[2020-04-04 06:31] LABS: Barbiturates Screen,Urine Negative ng/ml (<200)
[2020-04-04 06:32] LABS: Benzodiazepines Screen,Urine Negative ng/ml (<200); Cannabinoid Screen,Urine Negative ng/ml (<50)
[2020-04-04 06:33] LABS: Cocaine Screen,Urine Negative ng/ml (<300); Methadone Screen,Urine Negative ng/ml (<300)
[2020-04-04 06:34] LABS: Opiate Screen,Urine Negative ng/ml (<300)
[2020-04-04 06:35] LABS: Phencyclidine Screen,Urine Negative ng/ml (<25)
[2020-04-04 08:19] VITALS: BMI 35.3
--- NOTE | 2020-04-04 10:43 | HMH.LABNOT ---
Labor Note - Subjective: Date: 04/04/20 Time: 10:43 Comment:: IOL for IUGR 5% Regular contractions, comfortable with epidural AROM with clear fluid; IUPC and FSE placed without difficulty - Objective: NST:: Reactive Cervical Dilation:: 3-4 Effacement:: 75% Membranes: artificially ruptured - Fetus: Monitoring?: Yes monitoring type:: Internal - Assessment: Patient Problems: All Active Problems growth restriction (Acute) Tobacco smoking complicating (Acute) Nausea/vomiting in (Acute) (Acute) Migraine (Acute) Meningitis (Acute) Acute delirium (Acute) Obesity (BMI 30-39.9) (Acute) Cocaine abuse, unspecified (Acute) Marijuana use (Acute) Encephalopathy (Acute) Vomiting and diarrhea (Acute) (Acute) UTI (urinary tract infection) (Acute) Gastroenteritis (Acute) Positive urine drug screen (Acute) Upper respiratory infection (Acute) Cystitis without hematuria (Acute) Mittelschmerz phenomenon (Acute) Abdominal pain (Acute) Leukocytosis (Acute) Appendicitis (Acute) S/P appendectomy (Acute) Postoperative abdominal pain (Acute) Dizziness (Acute) Tetrahydrocannabinol (THC) use disorder, mild, abuse (Acute) Sinus headache (Acute) - Plan: Comment:: Continue pitocin augmentation Continuous monitoring Anticipate
--- NOTE | 2020-04-04 10:52 | P.PN_ITS ---
[facility] Anesthesia Checklist - Patient Identification Patient Identification: Arm Band, Verbal (Name & ) - Structural Data Admitted From: Home Planned Operative Procedure/s: Labor epidural Consent for Planned Operative Procedure(s) Verified: Yes Verified Documents: Surgical Consent, History and Physical - Chart Verification Results Verified: CBC, UA (and urine toxicology) - Additional verifications Patient : Yes Anesthesia Reactions: No - Airway Assessment C-Spine Mobility Assessed: Yes TMJ Mobility Assessed: Yes Dentition: Good Dentition - Neurological Assessment Level of Consciousness: Awake, Alert, Appropriate, Follows Commands Hx Seizures: No Numbness or tingling in extremities: No - Anesthesia Plan Anesthesia Risk discussed: Yes Anesthesia Plan: Verified ASA Class: II Anesthesia Type: Epidural [facility] History I have reviewed the patient's past medical history: Yes Medical History: Reports:: Anxiety, Asthma, Depression, Seizures (associated with viral meningitis) Denies:: Cancer, Diabetes Mellitus Type 1, Diabetes Mellitus Type 2, Gastroesophageal Reflux Disease(GERD), MRSA *Have you ever received a pneumonia vaccine?: No *Have you received a flu vaccine this season?: No Other Medical History: Denies: Anemia, Arthritis Anesthesia experience/problems:: none Other Surgeries: Yes: Appendectomy, Other. No: Amputation: No Fractures: No - *Social History Smoking Status: Current every day smoker Tobacco Type: cigarettes # Packs/Day (cigarettes): 1 #Yrs smoked (if former smoker): 1 Alcohol Intake: never Substance Use Type: marijuana, former substance user *Occupational Status:: other Housing: apartment Household Members: significant other *Travel in the last 8 weeks: None - Psychiatric History Pschychiatric History:: Reports:: Anxiety, Depression Family Hx:: Coronary Artery Disease, Diabetes, Hyperlipidemia DRY ROLLER history: no Abnormal Uterine Bleeding, no dysfunctional uterine bleed Para: 1
--- NOTE | 2020-04-04 16:50 | HMH.DN ---
- Delivery Note Delivery Date:: 04/04/20 Delivery Time:: 14:43 Anesthesia Type: Epidural Was labor medically induced?: Yes Induction method: per pitocin protocol Gestational age (weeks): 38 delivered prior to 39 weeks?: Yes Justification for early elective delivery:: IUGR Infant Gender: Female at 1 minute: 8 at 5 minutes: 9 Delivery Procedure:: Spontaneous vaginal delivery of liveborn female infant over intact perineum. Delivery uncomplicated No nuchal cord or shoulder dystocia with delivery Infant placed in ALEXIA with mother immediately after umbilical cord clamped/cut, with standard nursing assessment performed Infant Apgars: 8 & 9 Placenta spontaneously expressed and examined; noted to be complete/intact. Vulva, vagina, and cervix inspected; no lacerations EBL: 300 cc All sponge/needle/instrument counts correct at conclusion of procedure Disposition: Mom/baby stable to recovery in [facility]DRP Placental Delivery Description: Spontaneous
[2020-04-05 06:34] LABS: Hematocrit 35.9 % (37.0-47.0); Hemoglobin 12.4 g/dL (12.2-16.2)
--- NOTE | 2020-04-05 13:11 | HMH.DCSUM ---
General - General Admission date:: 04/04/20 Discharge date: 04/05/20 HPI HPI: IOL @ 38 wks for IUGR 5%, per MFM recommendations Maternal course uncomplicated Tolerating regular diet Ambulating and voiding without difficulty Lochia apprpriate and pain control sufficient having some respiratory issues that may require transfer to tertiary facility Will plan for maternal discharge now in case is transferred Hospital Course Rhogam Administration: Not Indicated Objective Narrative: CONSTITUTIONAL: no acute distress HEENT: mucous membranes moist PULMONARY: breathing unlabored without audible wheezes CV: no tachycardia or visible JVD; normal LE peripheral pulses ABD: soft, NT/ND, no guarding : fundus firm at/below umbilicus SKIN: no visible rash or lesions EXT: 1+ edema LEs NEURO: alert/oriented, no altered mental status PSYCH: appropriate mood and demeanor without visible anxiety/depression Results Labs on day of discharge: Labs from last 24 hours 04/05/20 06:18 Hgb 12.4 Hct 35.9 L Preliminary micro results at discharge 04/04/20 05:50 Urine Culture - Preliminary Urine,Clean Catch NO GROWTH AFTER 24 HOURS DS: Diagnosis - Discharge Diagnosis (1) 38 weeks gestation of Status: Acute (2) growth restriction Status: Acute (3) Vaginal delivery Status: Acute (4) Tobacco smoking complicating Status: Acute Discharge Plan - Patient Discharge Instructions ACTIVITY: Continue current activity DIET: regular diet - Follow up Plan Follow up with: Wilda Cardenas MD [Staff Physician] - 05/16/20 9:30 am Disposition: Home, Self-Alf Medications: Home Medications Medication Instructions Recorded Confirmed Type albuterol sulfate 90 mcg/actuation 1 inh INHALATION Q4-6H PRN #1 each 02/17/20 04/04/20 Rx breath activated powder inhaler Vit Calc,Iron,Folic [Kpn] 1 tab PO DAILY 04/02/20 04/04/20 History Acetaminophen [Acetaminophen 325mg 650 mg PO Q4HP PRN #30 tab 04/05/20 Rx tab] Ibuprofen [Motrin 400mg 800 mg PO Q6HP PRN #30 tab 04/05/20 Rx tablet] Prescriptions/Medication Reconciliation: New Ibuprofen [Motrin 400mg tablet] 800 mg PO Q6HP PRN #30 tab PRN Reason: Mild To Moderate Pain Acetaminophen [Acetaminophen 325mg tab] 650 mg PO Q4HP PRN #30 tab PRN Reason: Mild Pain Continued albuterol sulfate 90 mcg/actuation breath activated powder inhaler 1 inh INHALATION Q4-6H PRN #1 each PRN Reason: shortness of breath or wheezing Vit Calc,Iron,Folic [Kpn] 1 tab PO DAILY - Problem Reconciliation Problems Reviewed?: Yes
--- NOTE | 2020-04-05 14:21 | SW/DCPLANNER ---
Addendum entered by Marifer Weaver 04/06/20 13:39: DID A FOLLOW UP CALL WITH [facility] WITH ID# [id number] AND CASE HAS BEEN ACCEPT.. ALGOLOGIST AT THE HOSPITAL DURING A REPORT.. Original Note: RECEIVED REFERRAL ON THIS PATIENT STATING PATIENT ONLY HAD 8 VISITS AND SEVERAL + DRUG SCREENS DURING VISITS.. 5 OF THE SCREENS WERE + FOR THC AND ONE FOR BARBITUATES.. [facility] DELIVERED A LIVE BORN FEMALE NAMED ANGELA ZURITA... HAS HAD ISSUES WITH HYPOGLYCEMIA AND IS CURRENTLY IN THE NURSERY WITH AND IV...THERE WAS QUESTION TO WHETHER INFANT WOULD NEED TO TRANSFER BUT IT APPEARS NO TRANSFERRING AT THIS TIME..PATIENT HAS ANOTHER CHILD 16MONTHS OLD AND IS A GIRL ALSO... SHE STATED SHE RECEIVES WIC AND IS BOTTLEFEEDING, SHE STATED SHE HAS A CARSEAT, DIAPERS, BOTTLES AND A BED FOR THE INFANT TO SLEEP IN... SHE IS GOING TO USE [employer] SUPERVISOR WHEN SHE DISCHARGES...INFANTS FATHER WAS AT BEDSIDE AND STATED HE HAS A TECHNICIAN HELPER INSTRUMENT JOB IN [place] AND HOPES TO GO BACK TO WORK SOON...I MADE A REFERRAL TO [facility] TO SEE IF PATIENT HAD AN OPEN CASE ON HER 1ST DAUGHTER AND ID# [id number]... WILL FOLLOW UP WITH ID NUMBER PRIOR TO INFANT DISCHARGING TO SEE IF IT MET CRITERIA....
[2020-04-06 07:30] VITALS: BP 112/77; PULSE 60; RESP 20; TEMP 36.8; O2SAT 100
[2020-04-06 12:29] VITALS: BP 116/68; PULSE 72; RESP 18; TEMP 36.7; O2SAT 100
--- NOTE | 2020-04-06 12:48 | HMH.ACPN2 ---
Internal Medicine - PN: Subj *Date: 04/06/20 *Time: 12:48 Interval history: PPD #2 was not transferred to [facility] so maternal discharge ordered yesterday was held no new complaints Exam Vital signs and Labs for Last 24 Hours: Temp Pulse Resp BP Pulse Ox 98.0 F 72 18 116/68 100 04/06/20 12:29 04/06/20 12:29 04/06/20 12:29 04/06/20 12:29 04/06/20 12:29 I & O for Last 24 hours: Intake & Output 04/04/20 04/05/20 04/06/20 04/07/20 11:59 11:59 11:59 11:59 Weight 187 lb Microbiology Reports for the Last 24 Hours: Microbiology 04/04/20 05:50 Urine,Clean Catch Urine Culture - Final NO GROWTH AFTER 48 HOURS Narrative: CONSTITUTIONAL: no acute distress HEENT: mucous membranes moist PULMONARY: breathing unlabored without audible wheezes CV: no tachycardia or visible JVD; normal LE peripheral pulses ABD: soft, NT/ND, no guarding : fundus firm at/below umbilicus SKIN: no visible rash or lesions EXT: 1+ edema LEs NEURO: alert/oriented, no altered mental status PSYCH: appropriate mood and demeanor without visible anxiety/depression Assessment and Plan (1) 38 weeks gestation of Current visit: Yes Status: Acute Category: Medical Code(s): Z3A.38 - 38 weeks gestation of (2) growth restriction Current visit: No Status: Acute Category: Medical (3) Vaginal delivery Current visit: Yes Status: Acute Category: Medical Code(s): O80 - Encounter for full-term uncomplicated delivery (4) Tobacco smoking complicating Current visit: No Status: Acute Category: Medical Code(s): O99.330 - Smoking (tobacco) complicating , unspecified trimester - Assessment and plan all Dx Assessment and Plan for all problems:: Maternal discharge today visit scheduled in 6 wks
== END 2020-04-06 14:45 | disposition home or self-care (01) | DRG 807 ==
PROVIDERS: Admitting Provider Obstetrics & Gynecology; PCP Physician Assistant; Visit Provider Obstetrics & Gynecology
DX: O36.5930 Maternal care for other known or suspected poor fetal growth, third trimester, not applicable or unspecified (principal); Z37.0 Single live birth; Z3A.38 38 weeks gestation of pregnancy
CPT/HCPCS: 59409; 36415; 59025; 80305; 81001; 85014; 85018; 85025; 86850; 87086; 94761; C1758; J0290; J0595

== ENCOUNTER → 2020-05-10 14:59 | Outpatient (CLI) | payer OTHER, SELFPAY ==
[2020-05-10 15:32] LABS: Basophils # 0.1 K/mm3 (0-0.2); Basophils % 0.7 % (0.1-2.0); Eosinophils # 0.6 K/mm3 (0.0-0.4); Eosinophils % 4.7 % (0.1-12.0); Hematocrit 43.4 % (37.0-47.0); Hemoglobin 14.6 g/dL (12.2-16.2); Lymphocytes # 4.4 K/mm3 (0.7-4.5); Lymphocytes % 36.1 % (10-50); Mean Corpuscular HGB Conc 33.7 g/dL (31.8-35.4); Mean Corpuscular Hemoglobin 31.4 pg (27.0-31.2); Mean Corpuscular Volume 93.1 fl (81-99); Mean Platelet Volume 12.2 fl (7.4-10.4); Monocytes # 0.5 K/mm3 (0.1-1.0); Neutrophils # 6.7 K/mm3 (1.8-7.8); Neutrophils % 54.6 % (37.0-80.0); Platelet Count 196 K/mm3 (142-424); Red Blood Count 4.66 M/mm3 (4.20-5.40); Red Cell Distribution Width 13.2 % (11.5-17.5); White Blood Count 12.2 K/mm3 (4.5-13.0)
[2020-05-10 15:40] LABS: Chloride 110 mmol/L (98-107); Potassium 3.9 mmoL/L (3.5-5.1); Sodium 137 mmol/L (136-145)
[2020-05-10 15:42] LABS: Alanine Aminotransferase 28 U/L (12-78); Anion Gap 7.9 mEq/L (5-15); Aspartate Amino Transferase 27 U/L (14-36); Blood Urea Nitrogen 12 mg/dl (7-17); Carbon Dioxide 23 mmol/L (22.0-30.0); Estimated Glomerular Filt Rate 91 ml/min (>60); GFR (African American) 111 ML/MIN (>60)
[2020-05-10 15:43] LABS: Albumin Level 4.1 g/dl (3.5-5.0); Albumin/Globulin Ratio 1.5 (1.1-1.8); Alkaline Phosphatase 93 U/L (38-126); Bilirubin,Total 0.7 mg/dl (0.2-1.3); Calcium 9.2 mg/dl (8.4-10.2); Chol/HDL Ratio 4.5 (1-3.5); Cholesterol 210 mg/dl (140-200); Globulin 2.7 g/dL (1.3-3.2); Glucose 110 mg/dl (74-100); HDL Cholesterol 47 mg/dl (40-60); Total Protein,Serum 6.8 g/dl (6.3-8.2); Triglycerides 95 mg/dl (30-150); VLDL Cholesterol 19 mg/dL (0-40)
[2020-05-10 15:54] LABS: Direct LDL Cholesterol 160.24 mg/dL (100-129)
[2020-05-10 16:01] LABS: T4 (Thyroxine) 6.7 ug/dl (5.53-11.0)
[2020-05-10 16:14] LABS: Thyroid Stimulating Hormone 1.72 uIU/mL (0.465-4.68)
[2020-05-12 11:17] LABS: Folate 7.9 ng/mL (>3.0); Vitamin B12 438 pg/mL (232-1245); Vitamin D 25 Hydroxy 29.6 ng/mL (30.0-100.0)
== END ==
PROVIDERS: Visit Provider Physician Assistant
DX: R20.0 Anesthesia of skin (principal); R20.2 Paresthesia of skin; E55.9 Vitamin D deficiency, unspecified; Z76.89 Persons encountering health services in other specified circumstances
CPT/HCPCS: 80053; 80061; 82607; 82652; 82746; 84436; 84443; 85025

== ENCOUNTER → 2020-05-11 12:29 | Outpatient (CLI) | payer OTHER, SELFPAY ==
--- NOTE | 2020-05-11 12:44 | XR_ITS ---
PROCEDURE: XR LUMBAR SPINE MIN 4V CLINICAL INDICATION: BLE numbness Right-sided lumbar pain COMPARISON: No exams were available for comparison FINDINGS: There is normal alignment. No fracture or dislocation. No lytic or blastic change. No significant degenerative change. There is straightening of the lumbar lordosis which could be due to patient position or muscle spasm. IMPRESSION: Straightening of lumbar lordosis otherwise negative Dictated by: Tuan Lundberg MD 05/11/2020 13:13 Electronically signed by Tuan Lundberg MD in [place] 05/11/2020 13:13
== END ==
PROVIDERS: PCP Physician Assistant; Visit Provider Physician Assistant
DX: R20.0 Anesthesia of skin (principal); R20.2 Paresthesia of skin
CPT/HCPCS: 72110

== ENCOUNTER → 2020-06-01 11:31 | Outpatient (CLI) | payer OTHER, SELFPAY ==
[2020-06-01 13:23] LABS: HCG,Quantitative < 2 mIU/ml (0-5.42)
== END ==
PROVIDERS: Visit Provider Obstetrics & Gynecology
DX: Z32.00 Encounter for pregnancy test, result unknown (principal); Z39.2 Encounter for routine postpartum follow-up
CPT/HCPCS: 36415; 84702

== ENCOUNTER 2020-11-08 17:27 | Emergency (ER) | payer OTHER, SELFPAY ==
[2020-11-08 17:48] VITALS: BP 121/67; PULSE 118; RESP 14; TEMP 36.9; O2SAT 99; BMI 30.8
--- NOTE | 2020-11-08 17:50 | HMH.EDUTC ---
[facility] [place] Impression: Viral syndrome, COVID-19 Disposition: Home, Self-Care Condition on Discharge: Good Instructions: Preventing the Spread of Coronavirus Discharge Instructions Additional Instructions: Drink plenty of fluids. Take tylenol for pain or fever. Return if you begin to have difficulty breathing. Follow up with your regular doctor. GO TO THE ER FOR ANY WORSENING SYMPTOMS Prescriptions: Azithromycin [Z-Jose 250mg Tab*] 250 mg PO UD DOSE PK #6 tab Transmission Status: Received by [facility] Referrals: Ame Morley PA [Primary Care Provider] - Time of Disposition: 17:56 Medical Decision Making - Medical Records Medical records reviewed: No: I reviewed the patient's medical records. - Horace Inquiry Pt receiving controlled substance: No Vital Signs: 11/08/20 17:48 11/08/20 18:18 Temperature 98.5 F 98.5 F Temperature Source Oral Oral Pulse Rate 118 H Pulse Rate [Radial] 118 H Respiratory Rate 14 14 Blood Pressure 121/67 Blood Pressure [Right Arm] 121/67 Blood Pressure Mean [Right Arm] 85 Blood Pressure Source Automatic Cuff Blood Pressure Source [Right Arm] Automatic Cuff Blood Pressure Position Sitting Blood Pressure Position [Right Arm] Sitting 02 Sat by Pulse Oximetry 99 Oxygen Delivery Method Room Air Room Air Orders (Tests/Meds): ORDERS Category Date Time Status Covid-19 Nasal PCR Sendout Akhil Routine Lab 11/08/20 17:40 [place] [facility] [place] - General Stated complaint: covid test Time Seen by Provider: 11/08/20 17:50 - History of Present Illness Provider Complaint: She has been exposed to covid by her boyfriend having it. She denies any complaints except that she has had some dizziness over the past 2 days. - Related Data Home Medications Medication Instructions Recorded Confirmed levonorgestrel 20 mcg/24 hours (6 INTRAUTERI 06/09/20 11/08/20 yrs) 52 mg intrauterine device Previous Rx's Medication Instructions Recorded albuterol sulfate 90 mcg/actuation 1 inh INHALATION Q4-6H PRN #1 each 02/17/20 breath activated powder inhaler Ibuprofen [Motrin 400mg 800 mg PO Q6HP PRN #30 tab 04/05/20 tablet] Azithromycin [Z-Jose 250mg Tab*] 250 mg PO UD DOSE PK #6 tab 12/09/20 escitalopram oxalate 10 mg tablet 10 mg PO QDAY #30 tab 11/08/20 hydroxyzine pamoate 25 mg capsule 25 mg PO TID PRN #60 cap 11/08/20 Allergies Allergy/AdvReac Type Severity Reaction Status Date / Time latex Allergy Mild Unknown Verified 11/08/20 13:14 allergy reaction [facility] History - Hepatitis A Screen Attestation statement:: This patient has been screened for Hepatitis A risk factors. I have reviewed the patient's past medical history: Yes Medical History: Reports:: Anxiety, Asthma, Depression, Seizures Denies:: Cancer, Diabetes Mellitus Type 1, Diabetes Mellitus Type 2, Gastroesophageal Reflux Disease(GERD), MRSA Other Medical History: Denies: Anemia, Arthritis Comment: Complains about hip pain during , Other Surgeries: Yes: No Previous Surgery, Appendectomy, , Other Amputation: No Fractures: No Comment: wisdom teeth - Social History Smoking Status: Current every day smoker Tobacco Type: cigarettes # Packs/Day (cigarettes): 1 #Yrs smoked (if former smoker): 1 Alcohol Intake: never Substance Use Type: marijuana, former substance user Occupational Status: other, unemployed, employed Housing: apartment Household Members: significant other - Psychiatric History Pschychiatric History:: Reports:: Anxiety, Depression Family Hx:: Coronary Artery Disease, Diabetes, Hyperlipidemia RN FLIGHT history: no Abnormal Uterine Bleeding, no dysfunctional uterine bleed Comment: LMP 2 weeks ago; periods are regular and of normal flow ROS Obtained: Yes All systems reviewed & no additional complaints - Constitutional Constitutional: Reports system reviewed and no additional complaints, except
[2020-11-08 18:18] VITALS: BP 121/67; PULSE 118; RESP 14; TEMP 36.9; O2SAT 99
[2020-11-10 12:02] LABS: Covid-19 Nasal PCR Sendout Lex Not Detected
== END 2020-11-08 18:18 | disposition home or self-care (01) ==
PROVIDERS: Emergency Provider Nurse Practitioner Family; PCP Physician Assistant
DX: Z20.828 Contact with and (suspected) exposure to other viral communicable diseases (principal); B34.9 Viral infection, unspecified; F17.210 Nicotine dependence, cigarettes, uncomplicated; J45.909 Unspecified asthma, uncomplicated; Z91.040 Latex allergy status
CPT/HCPCS: 99201; U0004

== ENCOUNTER 2020-12-13 17:45 | Emergency (ER) | payer OTHER, SELFPAY ==
[2020-12-13 17:46] VITALS: BP 130/76; PULSE 101; RESP 16; TEMP 36.4; O2SAT 97; BMI 30.2
--- NOTE | 2020-12-13 18:10 | HMH.EDUTC ---
[facility] [place]: Encounter for laboratory testing for COVID-19 virus Disposition: Home, Self-Care Condition on Discharge: Good Instructions: Sore Throat, DI for COVID-19 (Suspected or Confirmed ), Coronavirus Disease 2019, Preventing the Spread of Coronavirus Discharge Instructions Additional Instructions: *Monitor Temp, Over the counter Motrin or Tylenol as directed/as needed Tylenol every 4 hours and Motrin every 6 hours (as long as your family doctor has told you that you can take it) for fever or pain. and straight to ER if unable to lower temp less than 101.0 after medication given *Warm salt water gargles may help to soothe the throat *Throat Lozenges *Warm fluids like tea with honey may help to soothe the throat *Sleep elevated *Humidifier/Vaporizer Follow up IMMEDIATELY for new or worsening symptoms or no Noticeable improvement over the next 48-72 hours. 911 for difficulty breathing or swallowing You were tested for today for COVID19 your test result should be back in the next 24-48 hours, you may call to the [facility] to see if your test results are back in the next 48 hours [phone] [facility] hours are 9am-9pm You was given a handout with instructions for Self Quarantine and Self isolation for while you wait on test results and what to do if they are positive If you are positive the Health Dept will be contacting you also Prescriptions: Ondansetron [Zofran 4mg ODT] 4 mg PO TIDP PRN #6 tab PRN Reason: Nausea Transmission Status: Pending to [facility] Referrals: Ame Morley PA [Primary Care Provider] - As needed Forms: Work/School Release Time of Disposition: 18:24 Medical Decision Making - Horace Inquiry Pt receiving controlled substance: No Horace was queried for this patient: No Vital Signs: 12/13/20 17:46 Temperature 97.5 F L Temperature Source Oral Pulse Rate [Right] 101 H Respiratory Rate 16 Blood Pressure [Right Arm] 130/76 Blood Pressure Mean [Right Arm] 94 02 Sat by Pulse Oximetry 97 Orders (Tests/Meds): ORDERS Category Date Time Status Covid-19 Nasal PCR Sendout P&C Stat Lab 12/13/20 17:58 Received Medical Decision Narrative: Patient denies chance of [facility] [place] - General Stated complaint: covid test Time Seen by Provider: 12/13/20 18:11 Description of Symptoms (Recalled from Triage Doc. by RN): pt request COVID test pt c/o sore throat, loss of taste/ smell [place] HEENT Symptoms (Recalled from RN notes): Yes Resp Symptoms (Recalled from RN notes): Yes Skin Symptoms (Recalled from RN notes): No MS Symptoms (Recalled from RN notes): No Functional Status (Recalled from RN notes): wnl - History of Present Illness Provider Complaint: Patient states that she has been having sore throat and drainage States that she recently loss her sense of taste and smell so she is wanting to get tested for COVID State that she is also having some nausea but denies vomiting - Related Data Home Medications Medication Instructions Recorded Confirmed levonorgestrel 20 mcg/24 hours (6 INTRAUTERI 06/09/20 11/08/20 yrs) 52 mg intrauterine device Previous Rx's Medication Instructions Recorded albuterol sulfate 90 mcg/actuation 1 inh INHALATION Q4-6H PRN #1 each 02/17/20 breath activated powder inhaler Ibuprofen [Motrin 400mg 800 mg PO Q6HP PRN #30 tab 04/05/20 tablet] Azithromycin [Z-Jose 250mg Tab*] 250 mg PO UD DOSE PK #6 tab 11/08/20 escitalopram oxalate 10 mg tablet 10 mg PO QDAY #30 tab 11/08/20 hydroxyzine pamoate 25 mg capsule 25 mg PO TID PRN #60 cap 11/08/20 Ondansetron [Zofran 4mg ODT] 4 mg PO TIDP PRN #6 tab 12/13/20 Allergies Allergy/AdvReac Type Severity Reaction Status Date / Time latex Allergy Mild Unknown Verified 12/13/20 18:00 allergy reaction - Worker's Comp Is this a Worker's Comp case?: No Is this an [facility] Worker's Comp?: No Is this a [facility] Worker's Comp?: No [facility] Hist
[2020-12-13 18:52] VITALS: BP 130/76; PULSE 101; RESP 16; TEMP 36.4; O2SAT 97
[2020-12-15 07:50] LABS: Covid-19 Nasal PCR Sendout P&C NEGATIVE
== END 2020-12-13 18:53 | disposition home or self-care (01) ==
PROVIDERS: Emergency Provider Nurse Practitioner; PCP Physician Assistant
DX: Z20.822 Contact with and (suspected) exposure to COVID-19 (principal); J02.9 Acute pharyngitis, unspecified; F41.8 Other specified anxiety disorders; J45.909 Unspecified asthma, uncomplicated; G40.909 Epilepsy, unspecified, not intractable, without status epilepticus; F17.210 Nicotine dependence, cigarettes, uncomplicated; Z79.899 Other long term (current) drug therapy
CPT/HCPCS: 99202; G0463; U0004

== ENCOUNTER 2021-01-01 15:17 | Emergency (ER) | payer OTHER, SELFPAY ==
[2021-01-01 15:20] VITALS: BP 118/59; PULSE 78; RESP 18; TEMP 36.9; O2SAT 99; BMI 30.2
--- NOTE | 2021-01-01 15:37 | XR_ITS ---
PROCEDURE: XR SACRUM COCCYX MIN 2V CLINICAL INDICATION: fall Pain, fall with injury and pain COMPARISON: No exams were available for comparison FINDINGS: There is an IUD in place. There is mild sclerosis the SI joints along the iliac aspect on both sides The joint spaces are well-preserved. No significant degenerative/arthritic changes. No erosive changes evident.. There is cortical angulation involving the anterior cortex of the 1st coccyx segment consistent with a nondisplaced fracture with mild anterior angulation. Other findings:None. IMPRESSION: Nondisplaced coccyx fracture Dictated by: Tuan Lundberg MD 01/01/2021 16:14 Tuan Lundberg MD in [place] 01/01/2021 16:14
--- NOTE | 2021-01-01 15:44 | HMH.EDGENADL ---
ED Disposition Clinical Impression: Sacral pain Fall Qualifiers: Encounter type: initial encounter Qualified Code(s): W19.XXXA - Unspecified fall, initial encounter Disposition: Home, Self-Care Condition on Discharge: Good Instructions: DI for Low Back Pain Prescriptions: Naproxen 500 mg PO BID PRN #10 tab PRN Reason: pain Transmission Status: Pending to [facility] Referrals: Ame Morley PA [Primary Care Provider] - 3 days - Critical Care Critical Care Time: No Attestation: On 01/01/21, the high probability of a clinically significant, sudden or life threatening deterioration of the following system(s) required my full and direct attention, intervention and personal management. The time I documented below is in addition to time spent performing reported procedures but includes the following listed in this critical care notation. Medical Decision Making - Medical Records Medical records reviewed: Yes: I reviewed the patient's medical records. - Horace Inquiry Pt receiving controlled substance: No Vital Signs: 01/01/21 15:20 Temperature 98.4 F Temperature Source Oral Pulse Rate [Right Radial] 78 Respiratory Rate 18 Blood Pressure [Right Arm] 118/59 L Blood Pressure Mean [Right Arm] 78 Blood Pressure Source [Right Arm] Automatic Cuff Blood Pressure Position [Right Arm] Sitting 02 Sat by Pulse Oximetry 99 Oxygen Delivery Method Room Air - Lab Data Lab Results 01/01/21 15:30: Urine HCG, Qual Negative Orders (Tests/Meds): ORDERS Category Date Time Status XR sacrum coccyx min 2V Stat Exams 01/01/21 15:37 Taken - Radiology Data #1 Image(s): Other (Sacrum/coccyx) Image Reviewed: Yes I reviewed the patient's radiology image Preliminary Findings: Normal/NAD Medical Decision Narrative: X-ray of the sacrum/coccyx does not show any acute fracture or dislocation per my read. Recommended anti-inflammatories, movement is much as possible and discharged home to follow-up with primary care provider in 2 to 3 days for reevaluation. Return for any worsening or new symptoms. General Adult HPI - General Chief complaint: PAIN Stated complaint: AO [id number] injured back and tailbone Time Seen by Provider: 01/01/21 15:44 Mode of Arrival: Wheelchair Source of Information: Patient Limitations: No Limitations Description of Symptoms (Recalled from ER Triage Doc. by RN): Pt reports a fall down 6 steps at 1400 today. Pt c/o pain in tailbone area. - History of Present Illness HPI narrative: This is a 20-year-old female with no significant past medical history who presents to the emergency department for pain along the top of the right buttocks and through the superior portion of the gluteal cleft after falling downstairs at around 2 PM this afternoon. Her stairs were slick and she fell about 5 steps. She did not hit her head, denies any loss of consciousness. No lateralizing motor or sensory symptoms. Any sort of movement makes the pain worse, nothing makes it better. - Related Data Home Medications Medication Instructions Recorded Confirmed levonorgestrel 20 mcg/24 hours (6 INTRAUTERI 06/09/20 11/08/20 yrs) 52 mg intrauterine device Previous Rx's Medication Instructions Recorded albuterol sulfate 90 mcg/actuation 1 inh INHALATION Q4-6H PRN #1 each 02/17/20 breath activated powder inhaler Ibuprofen [Motrin 400mg 800 mg PO Q6HP PRN #30 tab 04/05/20 tablet] Azithromycin [Z-Jose 250mg Tab*] 250 mg PO UD DOSE PK #6 tab 11/08/20 escitalopram oxalate 10 mg tablet 10 mg PO QDAY #30 tab 11/08/20 hydroxyzine pamoate 25 mg capsule 25 mg PO TID PRN #60 cap 11/08/20 Ondansetron [Zofran 4mg ODT] 4 mg PO TIDP PRN #6 tab 12/13/20 Naproxen 500 mg PO BID PRN #10 tab 01/01/21 Allergies Allergy/AdvReac Type Severity Reaction Status Date / Time latex Allergy Mild Unknown Verified 12/13/20 18:00 allergy reaction [facility] History -
[2021-01-01 16:02] LABS: Urine Pregnancy, HCG Qual. Negative (Negative)
[2021-01-01 16:34] VITALS: BP 120/76; PULSE 88; RESP 20; TEMP 36.9; O2SAT 99
== END 2021-01-01 16:39 | disposition home or self-care (01) ==
PROVIDERS: Emergency Provider Emergency Medicine; PCP Physician Assistant
DX: S32.2XXA Fracture of coccyx, initial encounter for closed fracture (principal); W10.9XXA Fall (on) (from) unspecified stairs and steps, initial encounter; Y92.019 Unspecified place in single-family (private) house as the place of occurrence of the external cause; F41.8 Other specified anxiety disorders; J45.909 Unspecified asthma, uncomplicated; Z79.899 Other long term (current) drug therapy; Z91.040 Latex allergy status; F17.210 Nicotine dependence, cigarettes, uncomplicated
CPT/HCPCS: 72220; 81025; 99282

== ENCOUNTER → 2021-01-31 08:17 | Outpatient (CLI) | payer OTHER, SELFPAY ==
--- NOTE | 2021-01-31 08:25 | MR_ITS ---
PROCEDURE: MR LUMBAR SPINE WO CON CLINICAL INDICATION: fx coccyx with pain in right leg Fell on ice 01-01-21. COMPARISON: CR XR SACRUM COCCYX MIN 2V from 01/01/2021 TECHNIQUE: Standard multiplanar multiecho sequences are performed without contrast. 3-D MIP and myelographic images are also rendered and reviewed FINDINGS: There is normal alignment. The spinal cord ends at the L1-L2 level. No fracture or dislocation. The disc spaces are well preserved. No disc herniation canal stenosis or other significant anomaly. This exam does not cover the sacrum and the coccyx. IMPRESSION: Negative MRI of the lumbar spine. Dictated by: Tuan Lundberg MD 02/01/2021 09:30 Tuan Lundberg MD in [place] 02/01/2021 09:30
== END ==
PROVIDERS: PCP Physician Assistant; Visit Provider Physician Assistant
DX: S32.2XXA Fracture of coccyx, initial encounter for closed fracture (principal)
CPT/HCPCS: 72148; 76376

== ENCOUNTER 2021-06-08 05:53 | Emergency (ER) | payer OTHER, SELFPAY ==
[2021-06-08] VITALS (17 sets, daily range): BP systolic 100–147; BP diastolic 32–83; PULSE 52–88; RESP 18–36; TEMP 36.9–38.3; O2SAT 97–100; BMI 24.0
--- NOTE | 2021-06-08 06:12 | CT_ITS ---
PROCEDURE INFORMATION: Exam: CT Head Without Contrast Exam date and time: 06/08/2021 6:12 AM Age: 20 years old Clinical indication: Altered mental status/memory loss; Additional info: AMS TECHNIQUE: Imaging protocol: Computed tomography of the head without contrast. 3D rendering (Not supervised by radiologist): MIP and/or 3D reconstructed images were created by the technologist. Radiation optimization: All CT scans at this facility use at least one of these dose optimization techniques: automated exposure control; mA and/or kV adjustment per patient size (includes targeted exams where dose is matched to clinical indication); or iterative reconstruction. COMPARISON: HEADWO CT head/brain wo con 04/13/2019 4:05 PM FINDINGS: Normal appearing brain parenchyma without intraparenchymal hemorrhage and normal joiner-white matter differentiation/no obvious acute ischemic stroke. No intra-or extra-axial fluid collection, no supra-or infratentorial mass, no mass effect or midline shift. . Ventricles, sulci and basal cisterns are normal in size without hydrocephalus. Skull bones are normal. No significant mucoperiosteal thickening in the visualized paranasal sinuses. No mastoid effusion. IMPRESSION: No evidence of an acute intracranial hemorrhage, mass lesion or obvious acute ischemic infarction. COMMENTS: Suboptimal study due to motion artifact.
--- NOTE | 2021-06-08 06:22 | PC.NURSE ---
Pt to rad.
[2021-06-08 06:24] LABS: Microscopic, Urine URINE MICROSCOPIC (MICROSCOPIC)
[2021-06-08 06:27] LABS: Appearance,Urine SL CLOUDY (Clear); Blood, Urine Negative (Negative); Color,Urine YELLOW (Yellow); Glucose,Urine (UA) Negative (Negative); Ketones,Urine 3+ (Negative); Leukocyte Esterase,Urine TRACE (Negative); Nitrate,Urine Negative (Negative); PH,Urine 7.5 (5.0-8.5); Protein,Urine 1+ (Negative); Specific Gravity, Urine 1.015 (1.005-1.030); Urobilinogen,Urine >=8.0 EU/dl (0.2)
[2021-06-08 06:29] LABS: Basophils # 0.1 K/mm3 (0-0.2); Basophils % 0.7 % (0.1-2.0); Eosinophils % 0.3 % (0.1-12.0); Hematocrit 45.8 % (37.0-47.0); Hemoglobin 15.8 g/dL (12.2-16.2); Lymphocytes # 1.3 K/mm3 (0.7-4.5); Lymphocytes % 10.4 % (10-50); Mean Corpuscular HGB Conc 34.5 g/dL (31.8-35.4); Mean Corpuscular Hemoglobin 31.2 pg (27.0-31.2); Mean Corpuscular Volume 90.3 fl (81-99); Mean Platelet Volume 10.5 fl (7.4-10.4); Monocytes # 0.4 K/mm3 (0.1-1.0); Neutrophils # 10.4 K/mm3 (1.8-7.8); Neutrophils % 85.7 % (37.0-80.0); Platelet Count 263 K/mm3 (142-424); Red Blood Count 5.07 M/mm3 (4.20-5.40); Red Cell Distribution Width 13.4 % (11.5-17.5); White Blood Count 12.1 K/mm3 (4.8-10.8)
[2021-06-08 06:30] LABS: Urine Pregnancy, HCG Qual. Negative (Negative)
[2021-06-08 06:31] LABS: Alanine Aminotransferase 21 U/L (12-78); Albumin Level 4.9 g/dl (3.5-5.0); Albumin/Globulin Ratio 1.6 (1.1-1.8); Alkaline Phosphatase 92 U/L (38-126); Anion Gap 21.9 mEq/L (5-15); Aspartate Amino Transferase 22 U/L (14-36); Bilirubin,Total 1.8 mg/dl (0.2-1.3); Blood Urea Nitrogen 17 mg/dl (7-17); Calcium 9.7 mg/dl (8.4-10.2); Carbon Dioxide 22 mmol/L (22.0-30.0); Chloride 102 mmol/L (98-107); Creatinine Clearance Estimated 112 mL/min (50-200); Estimated Glomerular Filt Rate 91 ml/min (>60); GFR (African American) 110 ML/MIN (>60); Globulin 3.1 g/dL (1.3-3.2); Glucose 139 mg/dl (74-100); Potassium 3.9 mmoL/L (3.5-5.1); Sodium 142 mmol/L (136-145)
[2021-06-08 06:32] LABS: MANUAL DIFFERENTIAL MANUAL DIFFERENTIAL (MANUAL DIFF)
[2021-06-08 06:33] LABS: Bilirubin,Urine Negative (Negative)
[2021-06-08 06:33] LABS: Acetaminophen < 10 ug/ml (10-30); Ethyl Alcohol < 10 mg/dl (0-10); Salicylate < 1.0 mg/dL (2.0-20.0)
[2021-06-08 06:39] LABS: Amorphous Sediment,Urine 1+ /lpf; WBC,Urine Occasional #/hpf (0-3)
[2021-06-08 06:42] LABS: Lymphocytes % 14 % (10-50); Monocytes % 3 % (2-9); Neutrophils % 83 % (42-76); Platelet Estimate Normal; RBC Morphology Normal; Total Cells Counted 100
[2021-06-08 06:49] LABS: T4 (Thyroxine) 14.5 ug/dl (5.53-11.0)
--- NOTE | 2021-06-08 06:58 | HMH.EDHA ---
ED Disposition Condition on Discharge: Good - Critical Care Critical Care Time: No <Chato Escudero - Last Filed: 06/08/21 07:51> Condition on Discharge: Serious (Patient was hemodynamically stable however significantly altered. Patient has viral meningitis and needs close monitoring) Time of Disposition: 13:00 - Critical Care Critical Care Time: Yes (25 minutes) Total Critical Care Time: 25 (Critical care time includes monitoring of vital signs, monitoring mental status, multiple doses of benzodiazepines as well as ketamine in order to sedate patient for lumbar puncture performed by the radiology department.) Vital system(s) involved:: Central Nervous System My critical care processes included: Assessment & monitoring of V/S, Initial and Re-exams <Kaiser Olivia - Last Filed: 06/08/21 16:45> Clinical Impression: Acute delirium, Febrile illness, acute, Viral meningitis, unspecified Altered mental status Qualifiers: Altered mental status type: unspecified Qualified Code(s): R41.82 - Altered mental status, unspecified Disposition: Xfer Short-Term Hosp Instructions: DI for Altered Mental Status Additional Instructions: You're being transferred to [facility] for further work-up and treatment of your meningitis at this time. Referrals: Ame Morley PA [Primary Care Provider] - Forms: Transfer Record - ED Attestation: On 06/08/21, the high probability of a clinically significant, sudden or life threatening deterioration of the following system(s) required my full and direct attention, intervention and personal management. The time I documented below is in addition to time spent performing reported procedures but includes the following listed in this critical care notation. Medical Decision Making - Medical Records Medical records reviewed: Yes: I reviewed the patient's medical records. - Horace Inquiry Pt receiving controlled substance: No - Lab Data Lab results reviewed: Yes: I reviewed the patient's lab results. Result diagrams: 06/08/21 06:00 06/08/21 06:00 <Chato Escudero - Last Filed: 06/08/21 07:51> - Lab Data Result diagrams: 06/08/21 06:00 06/08/21 06:00 <Kaiser Olivia - Last Filed: 06/08/21 16:45> Vital Signs: 06/08/21 05:54 06/08/21 07:17 06/08/21 07:20 Temperature 98.4 F 101.0 F H Temperature Source Oral Rectal Pulse Rate 85 Pulse Rate [Left Radial] 88 Respiratory Rate 18 Blood Pressure 123/76 Blood Pressure [Right Arm] 147/83 H Blood Pressure Mean [Right Arm] 104 Blood Pressure Source Blood Pressure Position Sitting 02 Sat by Pulse Oximetry 100 100 Oxygen Delivery Method Room Air Room Air Oxygen Flow Rate (LPM) 06/08/21 08:20 06/08/21 08:48 06/08/21 09:49 Temperature Temperature Source Pulse Rate 79 63 52 L Pulse Rate [Left Radial] Respiratory Rate 22 20 26 H Blood Pressure 119/76 108/77 L Blood Pressure [Right Arm] Blood Pressure Mean [Right Arm] Blood Pressure Source Blood Pressure Position Sitting Sitting 02 Sat by Pulse Oximetry 97 98 100 Oxygen Delivery Method Nasal Cannula Nasal Cannula Nasal Cannula Oxygen Flow Rate (LPM) 2 2 2 06/08/21 10:00 06/08/21 10:10 06/08/21 10:30 Temperature Temperature Source Pulse Rate 53 L 54 L 76 Pulse Rate [Left Radial] Respiratory Rate 36 H 32 H 32 H Blood Pressure 111/68 116/67 109/32 L Blood Pressure [Right Arm] Blood Pressure Mean [Right Arm] Blood Pressure Source Automatic Cuff Blood Pressure Position Sitting Sitting Supine 02 Sat by Pulse Oximetry 100 100 100 Oxygen Delivery Method Nasal Cannula Nasal Cannula Nasal Cannula Oxygen Flow Rate (LPM) 2 2 2 06/08/21 11:00 06/08/21 11:30 06/08/21 12:30 Temperature Temperature Source Pulse Rate 74 68 52 L Pulse Rate [Left Radial] Respiratory Rate 25 H 25 H 20 Blood Pressure 110/63 114/66 110/60 Blood Pressure [Right Arm] Blood Pressure Mean [Right Arm] Blood Pr
[2021-06-08 07:02] LABS: Thyroid Stimulating Hormone 2.03 uIU/mL (0.465-4.68)
[2021-06-08 07:09] LABS: Amphetamine/Metha Screen,Urine Negative ng/ml (<1000); Benzodiazepines Screen,Urine Negative ng/ml (<200)
[2021-06-08 07:10] LABS: Barbiturates Screen,Urine Negative ng/ml (<200)
[2021-06-08 07:11] LABS: Cannabinoid Screen,Urine Positive ng/ml (<50)
[2021-06-08 07:12] LABS: Cocaine Screen,Urine Negative ng/ml (<300); Methadone Screen,Urine Negative ng/ml (<300)
[2021-06-08 07:13] LABS: Opiate Screen,Urine Negative ng/ml (<300); Phencyclidine Screen,Urine Negative ng/ml (<25)
[2021-06-08 07:46] LABS: Lactic Acid 2.3 mmol/L (0.7-2.1)
--- NOTE | 2021-06-08 07:56 | PC.NURSE ---
Indu Davey RN spoke with holly advising we need an LP for pt.
--- NOTE | 2021-06-08 08:39 | PC.NURSE ---
pt continues to pull off cardiac leads, pulse ox, and end title. confused, writhing on bed. mother at bedside.
--- NOTE | 2021-06-08 09:26 | FL_ITS ---
PROCEDURE: FL GUIDED LUMBAR PUNCTURE LP CLINICAL INDICATION: Altered Mental Status Fever, altered mental status, suspected meningitis COMPARISON: MR MR LUMBAR SPINE WO CON from 01/31/2021 FINDINGS: Technique: Following obtaining informed consent with fluoroscopic guidance and sedation per the ER physician the patient was placed in the prone position and under fluoroscopic guidance and aseptic technique a 20 gauge spinal needle was inserted into the thecal sac posteriorly at the L3-L4 level. Approximately 12 cc of clear CSF was obtained and sent to laboratory for analysis. The patient tolerated the procedure well without evidence of immediate complication and left the radiology suite in stable condition . IMPRESSION: Uneventful fluoro guided lumbar puncture. Dictated by: Tuan Lundberg MD 06/08/2021 10:27 Tuan Lundberg MD in [place] 06/08/2021 10:27
--- NOTE | 2021-06-08 09:40 | PC.NURSE ---
pt to CT with CICI Hernandez
--- NOTE | 2021-06-08 09:40 | PC.NURSE ---
pt to [facility] room for LP with CICI Hernandez
--- NOTE | 2021-06-08 09:49 | PC.NURSE ---
pt in ct for lp. with clinical research monitor and nurse.
--- NOTE | 2021-06-08 09:56 | PC.NURSE ---
pt yelling moving on table pt given 1mg versed
--- NOTE | 2021-06-08 09:59 | PC.NURSE ---
pt yelling during lp moving on table. versed 1mg ivp
--- NOTE | 2021-06-08 10:03 | PC.NURSE ---
ketamine 25mg ivp given pt yelling out and moving on table during lp
[2021-06-08 10:27] LABS: Appearance,CSF Hazy (Clear); Volume,CSF 12 mL
[2021-06-08 10:31] LABS: Glucose,CSF 67 mg/dl (40-70)
--- NOTE | 2021-06-08 10:34 | PC.NURSE ---
sae morillo in lab total protein in spinal fluid 136 notified ER at this time
[2021-06-08 10:41] LABS: Red Blood Cell,CSF 7 cells/uL (0); White Blood Cell,CSF 554 cells/uL (0-5)
--- NOTE | 2021-06-08 10:47 | HMH.PHACONS ---
- Pharmacy Consult Date: 06/08/21 Time: 10:47 Referring provider: MAYA FARAH MD Reason for Consult:: VANCOMYCIN DOSING Allergies and ADEs:: Allergies Allergy/AdvReac Type Severity Reaction Status Date / Time latex Allergy Mild Unknown Verified 06/07/21 13:36 allergy reaction Home Medications:: Home Medications Medication Instructions Recorded Confirmed Type No Known Home Medications 06/08/21 06/08/21 History Height: 1.63 m Weight: 63.503 kg Laboratory Results:: Laboratory Results - last 24 hr 06/08/21 06:00: WBC 12.1 H, RBC 5.07, Hgb 15.8, Hct 45.8, MCV 90.3, MCH 31.2, MCHC 34.5, RDW 13.4, Plt Count 263, MPV 10.5 H, Neut % (Auto) 85.7 H, Lymph % (Auto) 10.4, [place] % (Auto) 3.0, Eos % (Auto) 0.3, Baso % (Auto) 0.7, Neut # (Auto) 10.4 H, Lymph # (Auto) 1.3, [place] # (Auto) 0.4, Eos # (Auto) 0.0, Baso # (Auto) 0.1, Total Counted 100, Neutrophils % (Manual) 83 H, Lymphocytes % (Manual) 14, Monocytes % (Manual) 3, Platelet Estimate Normal, RBC Morphology Normal 06/08/21 06:00: Urine HCG, Qual Negative 06/08/21 06:00: Sodium 142, Potassium 3.9, Chloride 102, Carbon Dioxide 22, Anion Gap 21.9 H, BUN 17, Creatinine 0.80, Estimated Creat Clear 112, Estimated GFR 91, Est GFR ( Amer) 110, Glucose 139 H, Calcium 9.7, Total Bilirubin 1.8 H, AST 22, ALT 21, Alkaline Phosphatase 92, Total Protein 8.0, Albumin 4.9, Globulin 3.1, Albumin/Globulin Ratio 1.6, TSH 2.03, Thyroxine (T4) 14.5 H, Salicylates < 1.0 L, Acetaminophen < 10 L 06/08/21 06:00: Plasma/Serum Alcohol < 10 06/08/21 06:10: Urine Color Yellow, Urine Appearance Sl cloudy, Urine pH 7.5, Ur Specific Orange 1.015, Urine Protein 1+, Urine Glucose (UA) Negative, Urine Ketones 3+, Urine Blood Negative, Urine Nitrate Negative, Urine Bilirubin Negative, Urine Urobilinogen >=8.0, Ur Leukocyte Esterase Trace, Urine RBC None, Urine WBC Occasional, Ur Squamous Epith Cells 10-20, Amorphous Sediment 1+, Urine Bacteria None 06/08/21 06:10: Urine Opiates Screen Negative, Urine Methadone Screen Negative, Ur Barbituates Screen Negative, Ur Phencyclidine Scrn Negative, Ur Amphetamines Screen Negative, U Benzodiazepines Scrn Negative, Urine Cocaine Screen Negative, U Marijuana (THC) Screen Positive H 06/08/21 07:20: Lactate 2.3 H 06/08/21 10:00: CSF Volume 12, CSF Appearance Hazy, CSF WBC 554 H, CSF RBC 7 06/08/21 10:00: CSF Glucose 67, CSF Total Protein 136.0 H* Medical History: Reports:: Anxiety, Asthma, Depression, Migraine, Seizures Denies:: Cancer, Diabetes Mellitus Type 1, Diabetes Mellitus Type 2, Gastroesophageal Reflux Disease(GERD), MRSA Assessment and Plan - Assessment and plan all Dx Assessment and Plan for all problems:: PHARMACOKINETIC DOSING SERVICE This is a 20 year old female patient. Measured serum creatinine (SCr) is 0.8 mg/dL. Given a height of 162.56 cm and a weight of 63.5 kg, estimated creatinine clearance is 89.2 mL/min (using the CrCl TBW body weight). Assessment: The following targets were selected for dosing: - Desired AUC = 500 mcg*h/mL - Desired Cmax = 35 mcg/mL - Desired Cmin = 12.5 mcg/mL - Vd coefficient = 0.65 L/kg - Ke equation = CrCl*0.44176+0.0044 Calculations: Based on above, the following are calculated parameters for AUC-based vancomycin dosing in this patient: - Calculated Vd = 41.275L - Calculated Ke = 0.078 inverse hours - Calculated half-life = 8.8 hours Recommended Prescribed Dosing: Empiric dose of vancomycin IV 1000mg [id number]. Patient given Vancomycin 1500 mg IV as a one time loading dose. Which is predicted to achieve the following parameters: - Estimated AUC = 617.7 mcg*h/mL - Estimated Cmax = 39.7 mcg/mL - Estimated Cmin = 16.8 mcg/mL Thank you for the consult, will continue to follow this patient.
[2021-06-08 11:00] LABS: Mononuclear WBCs,CSF 99 %; Polynuclear WBCs,CSF 1 %
[2021-06-08 11:11] LABS: Coronavirus 19, PCR Not Detected (NotDetected); Influenza A, PCR Not Detected (NotDetected); Influenza B, PCR Not Detected (NotDetected)
[2021-06-08 11:33] LABS: Reflex Lactic Add Lactic Reflex
--- NOTE | 2021-06-08 11:44 | PC.NURSE ---
Dr Escudero returned call, advised not to keep pt here with possible Meningitis.
--- NOTE | 2021-06-08 12:06 | PC.NURSE ---
Dr Olivia speaking with Dr Cardona [facility].
--- NOTE | 2021-06-08 12:21 | PC.NURSE ---
[facility] accepting pt. awaiting bed placement.
[2021-06-08 12:40] LABS: Lactic Acid Follow Up (RFLX 1) 1.2 mmol/L (0.7-2.1)
--- NOTE | 2021-06-08 13:00 | PC.NURSE ---
PT RESTING. MOTHER AT BEDSIDE
--- NOTE | 2021-06-08 14:01 | PC.NURSE ---
ATTEMPTED TO CALL REPORT, NURSE IS FEEDING A PT AND WILL HAVE TO CALL BACK
--- NOTE | 2021-06-08 14:34 | PC.NURSE ---
REPORT TO [facility].
--- NOTE | 2021-06-08 14:36 | PC.NURSE ---
REPORT TO [facility]. PT TRANSFERRED TO [facility]
--- NOTE | 2021-06-08 14:36 | PC.NURSE ---
PEOPLES EMPTIED 300CC DARK URINE
[2021-06-10 18:30] LABS: HSV-1 DNA Negative (Negative); HSV-2 DNA Negative (Negative)
[2021-06-11 18:32] LABS: CAP Mandated Reflex to Culture Not Indicated (.); Cryptococcus Antigen, CSF Negative (Negative)
[2021-06-12 17:13] LABS: Albumin, CSF 76 mg/dL (7-29)
[2021-06-13 09:01] LABS: Epstein-Barr Virus CSF/WB PCR Negative (Negative)
[2021-06-14 00:07] LABS: Enterovirus,CSF PCR Negative (Negative)
== END 2021-06-08 14:58 | disposition short-term general hospital (02) ==
PROVIDERS: Emergency Medicine; Internal Medicine Infectious Disease; Emergency Provider Emergency Medicine; PCP Physician Assistant
DX: A87.9 Viral meningitis, unspecified (principal); R41.0 Disorientation, unspecified; J45.909 Unspecified asthma, uncomplicated; G43.709 Chronic migraine without aura, not intractable, without status migrainosus; F17.210 Nicotine dependence, cigarettes, uncomplicated; F12.10 Cannabis abuse, uncomplicated; F41.8 Other specified anxiety disorders
CPT/HCPCS: 62270; 70450; 80053; 80305; 80329; 81001; 81025; 82042; 82945; 83605; 84155; 84436; 84443; 85007; 85025; 87040; 87070; 87077; 87205; 87498; 87529; 87798; 87899; 89051; 96365; 96367; 96375; 96376; 99285; 99291; J2405; J3370; U0003

== ENCOUNTER 2021-06-14 23:02 | Emergency (ER) | payer OTHER, SELFPAY ==
[2021-06-14 22:59] VITALS: BP 143/99; PULSE 69; RESP 18; TEMP 36.3; O2SAT 97; BMI 29.0
[2021-06-14 23:18] VITALS: BP 143/101; PULSE 95; O2SAT 96
[2021-06-14 23:23] LABS: Microscopic, Urine URINE MICROSCOPIC (MICROSCOPIC)
--- NOTE | 2021-06-14 23:27 | PC.NURSE ---
Called [facility] for records at this time.
--- NOTE | 2021-06-14 23:38 | PC.NURSE ---
Tech sitting at bedside for pt safety
[2021-06-14 23:46] LABS: Appearance,Urine CLEAR (Clear); Bilirubin,Urine Negative (Negative); Blood, Urine Negative (Negative); Color,Urine YELLOW (Yellow); Glucose,Urine (UA) Negative (Negative); Ketones,Urine TRACE (Negative); Leukocyte Esterase,Urine Negative (Negative); Nitrate,Urine Negative (Negative); PH,Urine 8.5 (5.0-8.5); Protein,Urine Negative (Negative); Specific Gravity, Urine 1.015 (1.005-1.030); Urobilinogen,Urine 0.2 EU/dl (0.2)
[2021-06-14 23:48] LABS: Urine Pregnancy, HCG Qual. Negative (Negative)
[2021-06-14 23:56] LABS: Alanine Aminotransferase 46 U/L (12-78); Albumin Level 4.8 g/dl (3.5-5.0); Alkaline Phosphatase 78 U/L (38-126); Anion Gap 11.4 mEq/L (5-15); Aspartate Amino Transferase 31 U/L (14-36); Bilirubin,Direct 0.5 mg/dl (0.0-0.4); Bilirubin,Indirect 0.7 mg/dL (0.0-0.9); Bilirubin,Total 1.2 mg/dl (0.2-1.3); Bilirubin,Unconjugated 0.7 mg/dL (0.0-1.1); Blood Urea Nitrogen 12 mg/dl (7-17); Calcium 9.2 mg/dl (8.4-10.2); Carbon Dioxide 28 mmol/L (22.0-30.0); Chloride 101 mmol/L (98-107); Creatinine Clearance Estimated 191 mL/min (50-200); Estimated Glomerular Filt Rate 126 ml/min (>60); GFR (African American) 153 ML/MIN (>60); Glucose 144 mg/dl (74-100); Potassium 3.4 mmoL/L (3.5-5.1); Sodium 137 mmol/L (136-145); Total Protein,Serum 7.5 g/dl (6.3-8.2)
[2021-06-14 23:57] LABS: Ethyl Alcohol < 10 mg/dl (0-10)
[2021-06-14 23:58] LABS: Acetaminophen < 10 ug/ml (10-30); Salicylate < 1.0 mg/dL (2.0-20.0)
[2021-06-15] VITALS: BP 145/94; PULSE 99; O2SAT 99
[2021-06-15] LABS: Barbiturates Screen,Urine Negative ng/ml (<200)
[2021-06-15 00:01] LABS: C-Reactive Protein 0.7 mg/L (0-4)
[2021-06-15 00:01] LABS: Amphetamine/Metha Screen,Urine Negative ng/ml (<1000); Benzodiazepines Screen,Urine Negative ng/ml (<200)
--- NOTE | 2021-06-15 00:01 | HMH.EDAMS ---
ED Disposition Clinical Impression: Post viral syndrome Disposition: Home, Self-Care Condition on Discharge: Good Instructions: DI for Headache Additional Instructions: see pcp for follow up Referrals: Provider,Referral, [Primary Care Provider] - - Critical Care Critical Care Time: No Attestation: On 06/14/21, the high probability of a clinically significant, sudden or life threatening deterioration of the following system(s) required my full and direct attention, intervention and personal management. The time I documented below is in addition to time spent performing reported procedures but includes the following listed in this critical care notation. Medical Decision Making - Medical Records Medical records reviewed: Yes: I reviewed the patient's medical records. - Horace Inquiry Pt receiving controlled substance: No Vital Signs: 06/14/21 22:59 06/14/21 23:18 06/15/21 00:00 Temperature 97.4 F L Temperature Source Oral Pulse Rate 95 H 99 H Pulse Rate [Left Radial] 69 Respiratory Rate 18 Blood Pressure 143/101 H 145/94 H Blood Pressure [Right Arm] 143/99 H Blood Pressure Mean [Right Arm] 113 Blood Pressure Source Automatic Cuff Blood Pressure Source [Right Arm] Automatic Cuff Blood Pressure Position Supine Blood Pressure Position [Right Arm] Sitting 02 Sat by Pulse Oximetry 97 96 99 Oxygen Delivery Method Room Air Room Air 06/15/21 00:59 06/15/21 01:30 Temperature 98.8 F Temperature Source Oral Pulse Rate 74 101 H Pulse Rate [Left Radial] Respiratory Rate 16 Blood Pressure 142/82 H 134/83 Blood Pressure [Right Arm] Blood Pressure Mean [Right Arm] Blood Pressure Source Blood Pressure Source [Right Arm] Blood Pressure Position Blood Pressure Position [Right Arm] 02 Sat by Pulse Oximetry 100 99 Oxygen Delivery Method Room Air - Lab Data Lab results reviewed: Yes: I reviewed the patient's lab results. Lab Results 06/14/21 23:11: Urine Color Yellow, Urine Appearance Clear, Urine pH 8.5, Ur Specific [place] 1.015, Urine Protein Negative, Urine Glucose (UA) Negative, Urine Ketones Trace, Urine Blood Negative, Urine Nitrate Negative, Urine Bilirubin Negative, Urine Urobilinogen 0.2, Ur Leukocyte Esterase Negative, Urine RBC None, Urine WBC Occasional, Ur Squamous Epith Cells 3-5, Urine Bacteria None, Urine Yeast 1+ 06/14/21 23:11: Urine Opiates Screen Positive H, Urine Methadone Screen Negative, Ur Barbituates Screen Negative, Ur Phencyclidine Scrn Negative, Ur Amphetamines Screen Negative, U Benzodiazepines Scrn Negative, Urine Cocaine Screen Negative, U Marijuana (THC) Screen Positive H 06/14/21 23:11: Urine HCG, Qual Negative 06/14/21 23:30: WBC 14.5 H, RBC 5.08, Hgb 15.6, Hct 45.7, MCV 89.9, MCH 30.6, MCHC 34.1, RDW 13.5, Plt Count 211, MPV 10.9 H, Neut % (Auto) 85.6 H, Lymph % (Auto) 10.5, [place] % (Auto) 2.8, Eos % (Auto) 0.5, Baso % (Auto) 0.5, Neut # (Auto) 12.5 H, Lymph # (Auto) 1.5, [place] # (Auto) 0.4, Eos # (Auto) 0.1, Baso # (Auto) 0.1, ESR 5 06/14/21 23:30: Sodium 137, Potassium 3.4 L, Chloride 101, Carbon Dioxide 28, Anion Gap 11.4, BUN 12, Creatinine 0.60, Estimated Creat Clear 191, Estimated GFR 126, Est GFR ( Amer) 153, Glucose 144 H, Calcium 9.2, Total Bilirubin 1.2, Direct Bilirubin 0.5 H, Conjugated Bilirubin 0.0, Indirect Bilirubin 0.7, Unconjugated Bilirubin 0.7, AST 31, ALT 46, Alkaline Phosphatase 78, Troponin I < 0.01, C-Reactive Protein 0.7, Total Protein 7.5, Albumin 4.8, Procalcitonin 0.030, Salicylates < 1.0 L, Acetaminophen < 10 L 06/14/21 23:30: Plasma/Serum Alcohol < 10 Result diagrams: 06/14/21 23:30 06/14/21 23:30 Orders (Tests/Meds): ED MEDICATIONS Generic Name Dose Route Start Last Admin Trade Name Freq PRN Reason Stop Dose Admin Sodium Chloride 1,000 mls @ 999 mls/hr 06/15/21 01:00 06/15/21 00:54 Sod Chlor 0.9% 1000ml Bag IV 06/15/21 02:00 999 mls/hr .Q1H1M [place]SEA Administration Discontinued Medica
[2021-06-15 00:02] LABS: Cannabinoid Screen,Urine Positive ng/ml (<50)
[2021-06-15 00:03] LABS: Cocaine Screen,Urine Negative ng/ml (<300); Methadone Screen,Urine Negative ng/ml (<300)
[2021-06-15 00:04] LABS: Opiate Screen,Urine Positive ng/ml (<300)
[2021-06-15 00:05] LABS: Phencyclidine Screen,Urine Negative ng/ml (<25)
[2021-06-15 00:10] LABS: Basophils # 0.1 K/mm3 (0-0.2); Basophils % 0.5 % (0.1-2.0); Eosinophils # 0.1 K/mm3 (0.0-0.4); Eosinophils % 0.5 % (0.1-12.0); Hematocrit 45.7 % (37.0-47.0); Hemoglobin 15.6 g/dL (12.2-16.2); Lymphocytes # 1.5 K/mm3 (0.7-4.5); Lymphocytes % 10.5 % (10-50); Mean Corpuscular HGB Conc 34.1 g/dL (31.8-35.4); Mean Corpuscular Hemoglobin 30.6 pg (27.0-31.2); Mean Corpuscular Volume 89.9 fl (81-99); Mean Platelet Volume 10.9 fl (7.4-10.4); Monocytes # 0.4 K/mm3 (0.1-1.0); Monocytes % 2.8 % (1.7-9.3); Neutrophils # 12.5 K/mm3 (1.8-7.8); Neutrophils % 85.6 % (37.0-80.0); Platelet Count 211 K/mm3 (142-424); Red Blood Count 5.08 M/mm3 (4.20-5.40); Red Cell Distribution Width 13.5 % (11.5-17.5); White Blood Count 14.5 K/mm3 (4.8-10.8)
[2021-06-15 00:16] LABS: MANUAL DIFFERENTIAL MANUAL DIFFERENTIAL (MANUAL DIFF)
[2021-06-15 00:17] LABS: Troponin I < 0.01 ng/ml (0.00-0.034)
--- NOTE | 2021-06-15 00:39 | PC.NURSE ---
Pt's boyfriend here at this time
[2021-06-15 00:59] VITALS: BP 142/82; PULSE 74; TEMP 37.1; O2SAT 100
[2021-06-15 01:26] LABS: Erythrocyte Sedimentation Rate 5 mm/hr (0-20)
[2021-06-15 01:30] VITALS: BP 134/83; PULSE 101; RESP 16; O2SAT 99
[2021-06-15 01:43] LABS: WBC,Urine Occasional #/hpf (0-3); Yeast,Urine 1+ /lpf
--- NOTE | 2021-06-15 01:56 | PC.NURSE ---
pt adamant she wants to be discharged home. alert and coherent although she continues to intermittently wail loudly and curse staff. pt assists staff in removal of iv and catheter placed previously by other staff members. pt quiet during time we are in room. when asked what continues to be the reason she yells out she just says it hurts and it did when i was at the office earlier .
--- NOTE | 2021-06-15 02:02 | PC.NURSE ---
pt reveal she took a per 30 tonight to help with her SANDERSON
[2021-06-15 02:24] VITALS: BP 141/88; PULSE 99; RESP 16; TEMP 37; O2SAT 98
[2021-06-15 05:25] LABS: Lymphocytes % 12 % (10-50); Monocytes % 5 % (2-9); Neutrophils % 83 % (42-76); Platelet Estimate Normal; Total Cells Counted 100
== END 2021-06-15 02:28 | disposition home or self-care (01) ==
PROVIDERS: Emergency Provider Emergency Medicine
DX: G93.3 Postviral and related fatigue syndromes (principal); F41.8 Other specified anxiety disorders; F17.210 Nicotine dependence, cigarettes, uncomplicated; Z91.040 Latex allergy status
CPT/HCPCS: 80048; 80076; 80177; 80305; 80329; 81001; 81025; 84145; 84484; 85007; 85025; 85651; 86140; 96365; 96375; 99283

== ENCOUNTER → 2021-06-26 09:53 | Outpatient (CLI) | payer OTHER, SELFPAY | PROVIDERS: PCP Physician Assistant; Visit Provider Specialist | DX: G40.909 Epilepsy, unspecified, not intractable, without status epilepticus (principal) | CPT/HCPCS: 95819 ==

== ENCOUNTER → 2021-07-11 13:19 | Outpatient (CLI) | payer OTHER, SELFPAY ==
[2021-07-11 13:23] LABS: Adenovirus,PCR Not Detected (NotDetected); Bordetella Pertussis Not Detected (NotDetected); Chlamydophila Pneumoniae, PCR Not Detected (NotDetected); Coronavirus 19, PCR Not Detected (NotDetected); Coronavirus 229E Not Detected (NotDetected); Coronavirus NL63 Not Detected (NotDetected); Coronavirus OC43 Not Detected (NotDetected); Coronovirus HKU1,PCR Not Detected (NotDetected); Human Metapneumovirus Not Detected (NotDetected); Influenza A, PCR Not Detected (NotDetected); Influenza AH1, 2009 Not Detected (NotDetected); Influenza AH1, PCR Not Detected (NotDetected); Influenza AH3,PCR Not Detected (NotDetected); Influenza B, PCR Not Detected (NotDetected); Mycoplasma Pneumoniae, PCR Not Detected (NotDetected); Parainfluenza 1, PCR Not Detected (NotDetected); Parainfluenza 2, PCR Not Detected (NotDetected); Parainfluenza 4, PCR Not Detected (NotDetected); Respiratory Syncytial Virus Not Detected (NotDetected); Rhinovirus/Enterovirus Not Detected (NotDetected)
[2021-07-11 15:12] LABS: Erythrocyte Sedimentation Rate 8 mm/hr (0-20)
[2021-07-11 15:48] LABS: Parainfluenza 3, PCR Detected (NotDetected)
[2021-07-13 09:25] LABS: HIV Screen 4th Generation wRfx Non Reactive (Non Reactive)
[2021-07-31 09:27] LABS: Antinuclear Antibodies (ANA) NEGATIVE
== END ==
PROVIDERS: Visit Provider Specialist
DX: R51.9 Headache, unspecified (principal); A87.9 Viral meningitis, unspecified; B99.9 Unspecified infectious disease; G40.909 Epilepsy, unspecified, not intractable, without status epilepticus; Z11.4 Encounter for screening for human immunodeficiency virus [HIV]; J11.1 Influenza due to unidentified influenza virus with other respiratory manifestations
CPT/HCPCS: 36415; 85651; 86038; 86225; 86235; 86703; 87581; 87633; 87798; G0432

== ENCOUNTER → 2021-08-23 15:10 | Outpatient (CLI) | payer OTHER, SELFPAY | PROVIDERS: PCP Physician Assistant; Visit Provider Nurse Practitioner | DX: Z20.822 Contact with and (suspected) exposure to COVID-19 (principal); U07.1 COVID-19 | CPT/HCPCS: C9803; U0003; U0005 ==

== ENCOUNTER → 2021-11-07 17:21 | Outpatient (CLI) | payer OTHER, SELFPAY | PROVIDERS: PCP Physician Assistant; Visit Provider Nurse Practitioner | DX: Z20.822 Contact with and (suspected) exposure to COVID-19 (principal) | CPT/HCPCS: C9803; U0003; U0005 ==

== ENCOUNTER → 2021-11-12 10:08 | Outpatient (CLI) | payer OTHER, SELFPAY | PROVIDERS: PCP Physician Assistant; Visit Provider Nurse Practitioner | DX: Z20.822 Contact with and (suspected) exposure to COVID-19 (principal) | CPT/HCPCS: C9803; U0003; U0005 ==

== ENCOUNTER 2022-02-03 17:56 | Emergency (ER) | payer OTHER, SELFPAY ==
--- NOTE | 2022-02-03 18:14 | XR_ITS ---
PROCEDURE INFORMATION: Exam: XR Right Foot Exam date and time: 02/03/2022 6:14 PM Age: 21 years old Clinical indication: Pain; Foot; Right; Additional info: Injured pinky toe TECHNIQUE: Imaging protocol: XR Right foot. Views: 3 or more views. COMPARISON: No relevant prior studies available. FINDINGS: Bones/joints: No acute fracture or malalignment. Soft tissues: Soft tissue edema noted. IMPRESSION: No acute osseous abnormality.
[2022-02-03 18:25] VITALS: BP 106/77; PULSE 97; RESP 16; TEMP 36.8; O2SAT 100; BMI 29.2
--- NOTE | 2022-02-03 18:47 | HMH.EDUTC ---
[facility] – [place], [place] Disposition Clinical Impression: Contusion Qualifiers: Encounter type: initial encounter Contusion area: toe Toe: lesser toe Damage to nail status: without damage Laterality: left Qualified Code(s): S90.122A - Contusion of left lesser toe(s) without damage to nail, initial encounter Disposition: Home, Self-Care Condition on Discharge: Good Instructions: Contusion Additional Instructions: Weightbearing as tolerated rest Ice with cold pack for 20 minutes remove may repeat for comfort every hour Elevate with foot above your heart as much as possible to help reduce swelling and therefore pain Ibuprofen every 6 hours as needed for pain or inflammation. If needs something more you can take Tylenol every 4 hours as needed as long as her primary care has told he was okayed for you to take both. If improving any do not need to follow-up you can bring begin exercising 2-3 weeks after injury. Follow-up immediately if new or worsening symptoms or no noticeable improvement over the next 3-5 days. call ortho Referrals: Ame Morley PA [Primary Care Provider] - Forms: Work/School Release Time of Disposition: 19:16 Medical Decision Making - Horace Inquiry Pt receiving controlled substance: No Vital Signs: 02/03/22 18:25 Temperature 98.3 F Temperature Source Oral Pulse Rate [Right Brachial] 97 H Respiratory Rate 16 Blood Pressure [Right Arm] 106/77 L Blood Pressure Mean [Right Arm] 86 Blood Pressure Source [Right Arm] Automatic Cuff Blood Pressure Position [Right Arm] Sitting 02 Sat by Pulse Oximetry 100 Oxygen Delivery Method Room Air [facility] [place], [place] HPI - General Chief complaint: Urgent Treatment Center Stated complaint: SANDERSON AO 02/01fell injured r foot Time Seen by Provider: 02/03/22 18:30 Mode of Arrival: Ambulatory Source of Information: Patient Limitations: No Limitations Description of Symptoms (Recalled from Triage Doc. by RN): PATIENT STATES SHE FELL 2 DAYS AGO AND INJURED RIGHT PINKY TOE HEENT Symptoms (Recalled from RN notes): No Resp Symptoms (Recalled from RN notes): No Skin Symptoms (Recalled from RN notes): No MS Symptoms (Recalled from RN notes): Yes Functional Status (Recalled from RN notes): WNL - History of Present Illness Provider Complaint: 21 yr old female presents for rt toe pain. pt states she fell 2 days ago - Related Data Home Medications Medication Instructions Recorded Confirmed albuterol sulfate 90 mcg/actuation 1 puff INHALATION PRN g 06/21/21 09/15/21 aerosol inhaler Previous Rx's Medication Instructions Recorded amitriptyline 25 mg tablet 25 mg PO HS #30 tab NS 08/23/21 levetiracetam 1,000 mg tablet 1,000 mg PO BID #60 tab 08/23/21 rizatriptan 10 mg tablet 10 mg PO ONCE PRN #10 tab MDD 20 mg 08/23/21 escitalopram oxalate 10 mg tablet See Rx Instructions .ROUTE 12/18/21 .COMPLEX #30 tab Allergies Allergy/AdvReac Type Severity Reaction Status Date / Time latex Allergy Mild Rash Verified 09/15/21 17:28 - Worker's Comp Is this a Worker's Comp case?: No [facility] History - Hepatitis A Screen Drug use history?: No High risk sexual behaviors?: No History of sexually transmitted infection?: No Currently employed?: No Childcare worker?: No Do you have indoor plumbing?: Yes Do you have electricity?: Yes Attestation statement:: This patient has been screened for Hepatitis A risk factors. I have reviewed the patient's past medical history: Yes Medical History: Reports:: Anxiety, Asthma, Depression, Diabetes Mellitus Type 1, Migraine, Seizures Denies:: Cancer, Diabetes Mellitus Type 2, Gastroesophageal Reflux Disease(GERD), MRSA Other Medical History: Denies: Anemia, Arthritis Comment: Complains about hip pain during , Other Surgeries: Yes: No Previous Surgery, Appendectomy, , Other Amputation: No Fractures: No Comment: wisdom teeth - Social History Smoking Status: Current every day smoker Tobacco Type: cigarettes # Packs/Day (cigarette
[2022-02-03 19:21] VITALS: BP 106/77; PULSE 97; RESP 16; TEMP 36.8; O2SAT 100
== END 2022-02-03 19:22 | disposition home or self-care (01) ==
PROVIDERS: Emergency Provider Nurse Practitioner Family; PCP Physician Assistant
DX: S90.122A Contusion of left lesser toe(s) without damage to nail, initial encounter (principal); R51.9 Headache, unspecified; G40.909 Epilepsy, unspecified, not intractable, without status epilepticus; J45.909 Unspecified asthma, uncomplicated; F17.210 Nicotine dependence, cigarettes, uncomplicated; F41.9 Anxiety disorder, unspecified; Z79.51 Long term (current) use of inhaled steroids; Z79.899 Other long term (current) drug therapy; Z91.040 Latex allergy status; Z82.49 Family history of ischemic heart disease and other diseases of the circulatory system; Z83.3 Family history of diabetes mellitus; Z83.438 Family history of other disorder of lipoprotein metabolism and other lipidemia; W19.XXXA Unspecified fall, initial encounter
CPT/HCPCS: 73630; 99213; G0463

== ENCOUNTER → 2022-07-15 11:20 | Outpatient (CLI) | payer OTHER, SELFPAY | PROVIDERS: PCP Physician Assistant; Visit Provider Physician Assistant | DX: Z20.822 Contact with and (suspected) exposure to COVID-19 (principal) | CPT/HCPCS: C9803; U0003; U0005 ==

== ENCOUNTER 2023-07-02 22:15 | Emergency (ER) | payer OTHER, SELFPAY ==
[2023-07-02 22:16] VITALS: BP 143/86; PULSE 136; RESP 18; TEMP 36.8; O2SAT 98; BMI 28.3
[2023-07-02 22:21] VITALS: BP 143/86; PULSE 136; RESP 18; O2SAT 100
[2023-07-02 22:36] LABS: Microscopic, Urine URINE MICROSCOPIC (MICROSCOPIC)
[2023-07-02 22:42] LABS: Appearance,Urine CLOUDY (Clear); Bilirubin,Urine 1+ (Negative); Blood, Urine Negative (Negative); Color,Urine YELLOW (Yellow); Glucose,Urine (UA) Negative (Negative); Ketones,Urine Negative (Negative); Leukocyte Esterase,Urine 1+ (Negative); Nitrate,Urine Negative (Negative); Protein,Urine TRACE (Negative); Specific Gravity, Urine 1.015 (1.005-1.030); Urobilinogen,Urine >=8.0 EU/dl (0.2)
[2023-07-02 22:53] LABS: Chloride 101 mmol/L (98-107); Sodium 140 mmol/L (136-145)
[2023-07-02 22:54] LABS: Potassium 3.4 mmoL/L (3.5-5.1)
[2023-07-02 22:56] LABS: Alanine Aminotransferase 21 U/L (12-78); Alkaline Phosphatase 113 U/L (38-126); Aspartate Amino Transferase 25 U/L (14-36); Bilirubin,Total 0.7 mg/dl (0.2-1.3); Blood Urea Nitrogen 11 mg/dl (7-17); Creatinine Clearance Estimated 117 mL/min (50-200); Estimated Glomerular Filt Rate 89 ml/min (>60); GFR (African American) 108 ML/MIN (>60)
[2023-07-02 22:57] LABS: Albumin Level 4.5 g/dl (3.5-5.0); Albumin/Globulin Ratio 1.2 (1.1-1.8); Anion Gap 13.4 mEq/L (5-15); Calcium 9.6 mg/dl (8.4-10.2); Carbon Dioxide 29 mmol/L (22.0-30.0); Globulin 3.8 g/dL (1.3-3.2); Glucose 107 mg/dl (74-100); Lactic Acid 0.9 mmol/L (0.7-2.1); Total Protein,Serum 8.3 g/dl (6.3-8.2)
[2023-07-02 22:58] LABS: Basophils # 0.1 K/mm3 (0-0.2); Basophils % 0.7 % (0.1-2.0); Eosinophils # 0.3 K/mm3 (0.0-0.4); Hematocrit 46.4 % (37.0-47.0); Lymphocytes # 3.5 K/mm3 (0.7-4.5); Lymphocytes % 27.8 % (10-50); Mean Corpuscular HGB Conc 32.3 g/dL (31.8-35.4); Mean Corpuscular Hemoglobin 29.1 pg (27.0-31.2); Mean Corpuscular Volume 90.1 fl (81-99); Mean Platelet Volume 9.4 fl (7.4-10.4); Monocytes # 0.4 K/mm3 (0.1-1.0); Monocytes % 3.4 % (1.7-9.3); Neutrophils # 8.3 K/mm3 (1.8-7.8); Platelet Count 311 K/mm3 (142-424); Red Blood Count 5.16 M/mm3 (4.20-5.40); Red Cell Distribution Width 13.1 % (11.5-17.5); White Blood Count 12.6 K/mm3 (4.8-10.8)
[2023-07-02 23:02] LABS: Bacteria,Urine 4+ /lpf
[2023-07-02 23:04] LABS: HCG Qualitative, Serum Negative (Negative)
--- NOTE | 2023-07-02 23:31 | HMH.EDGENADL ---
Discharge Plan Disposition Patient Disposition: Still a Patient Condition: Good Prescriptions Prescriptions: New sulfamethoxazole-trimethoprim 800-160 mg tablet 1 tab PO DAILY 14 Days Qty: 14 0RF levofloxacin 750 mg tablet 750 mg PO DAILY 7 Days Qty: 7 0RF phenazopyridine 200 mg tablet 200 mg PO Q8H PRN (Reason: pain) Qty: 14 0RF bacitracin 500 unit/gram ointment 1 applic topical Q8H Qty: 14 0RF No Action levetiracetam [Keppra] 1,000 mg tablet 1,000 mg PO BID Qty: 180 3RF cyclobenzaprine 10 mg tablet 10 mg PO TID PRN (Reason: muscle spasm) Qty: 90 0RF buspirone 7.5 mg tablet 7.5 mg PO BID Qty: 60 2RF quetiapine [Seroquel] 100 mg tablet 100 mg PO HS Qty: 30 2RF albuterol sulfate [ProAir HFA] 90 mcg/actuation HFA aerosol inhaler See Rx Instructions .ROUTE .COMPLEX Qty: 8.5 0RF Dose Instruction: INHALE 2 PUFFS EVERY 4 TO 6 HOURS NEEDED SHORTNESS OF BREATH OR WHEEZING Rx Instructions: INHALE 2 PUFFS EVERY 4 TO 6 HOURS NEEDED SHORTNESS OF BREATH OR WHEEZING Vraylar 4.5 mg capsule 4.5 mg PO DAILY Qty: 30 2RF gabapentin 300 mg capsule 300 mg PO BID Qty: 60 2RF Referrals Follow up/Referrals: Ame Morley PA [Primary Care Provider] - See instructions Activity Restrictions/Add. Instructions Additional Instructions/Restrictions: You were evaluated in the emergency department today. At this time, we feel that your tattoos are infected. You also have a urinary tract infection. Because of infections, we are putting you on strong antibiotics. The skin, side effects, such as nausea, diarrhea, and other issues. It is important that you orally hydrate while taking these medications. I recommend close outpatient follow-up for HIV and hepatitis C testing as well as for monitoring of your infections to ensure that they improve. Please return to the emergency department for any new or worsening symptoms, such as persistent fevers or other concerns. Clinical Impressions Clinical Impression: Tattoo of skin, Tattoo reaction, Cellulitis, UTI (urinary tract infection) Instructions Patient Instructions: Cellulitis, DI for Urinary Tract Infection (UTI) Discharge ED Provider: Barbara Moe General Adult HPI General Chief complaint: Wound/Laceration Stated complaint: poss infected tattoos Time Seen by Provider: 07/02/23 22:23 Mode of Arrival: Ambulatory Source of Information: Patient Limitations: No Limitations Description of Symptoms (Recalled from ER Triage Doc. by RN): Patient presents with complaints of infected tattoo. Patient states she let a friend tattoo her on her right arm and left thigh one week ago and they have since became infected and she complains of pain in both areas. Upon assessment 3 noticeable tattoos on right lower forearm that are red and inflammed. History of Present Illness HPI narrative: This patient is a 22-year-old female with a history of drug abuse presenting to the emergency department for evaluation with concern for infected tattoos and urinary tract infection symptoms. She states that she had tattoos placed by a friend at home approximately 1 week ago. Since then, they have become red, painful, and ulcerated. She has the tattoos on her right volar forearm and right AC fossa as well as her anterior left thigh. She also states that she has had dysuria, urinary frequency, and urinary urgency for approximately 1 week. She denies any fevers, chills, chest pain, shortness of breath, nausea, vomiting, changes bowel movements, or other concerns. She denies any prior reactions to tattoos or other issues. Related Data Previous Rx's Medication Instructions Recorded levetiracetam 1,000 mg tablet 1,000 mg PO BID #180 tabs 01/09/23 (Keppra) buspirone 7.5 mg tablet 7.5 mg PO BID #60 tabs 03/12/23 albuterol sulfate 90 mcg/actuation See Rx Instructions .Route 03/25/23 aerosol inhaler (ProAir HFA) .COMPLEX #8.5 ea cariprazine
[2023-07-02 23:36] VITALS: BP 129/77; PULSE 119; O2SAT 99
[2023-07-02 23:56] VITALS: BP 129/77; PULSE 112; RESP 18; TEMP 36.6; O2SAT 99
== END 2023-07-02 23:58 | disposition still patient (30) ==
PROVIDERS: Emergency Provider Emergency Medicine; PCP Physician Assistant
DX: L03.113 Cellulitis of right upper limb (principal); L03.116 Cellulitis of left lower limb; N39.0 Urinary tract infection, site not specified; G40.909 Epilepsy, unspecified, not intractable, without status epilepticus
CPT/HCPCS: 80053; 81001; 83605; 84703; 85025; 87086; 87088; 87186; 96361; 96374; 99285

== ENCOUNTER 2025-09-22 12:06 | Outpatient (CLI) | payer OTHER, SELFPAY ==
--- OUTSIDE RECORDS SUMMARY | 2025-09-22 12:08 | XMS_ITS | Clinical Summary ---
Author Organization [facility] Address [address] [place] [address] Phone Care Team Providers Care Film Sorter Name Role Phone Gonzalo Dickerson MD Unavailable [ ] Conditions or Problems No information available. Medications No information available. Medications Administered No information available. Allergies, Adverse Reactions, Alerts No information available. Results No information available. Plan of Care No information available. Procedures No information available. Vital Signs No information available. Immunizations No information available. Advance Directives No information available.
--- OUTSIDE RECORDS SUMMARY | 2025-09-22 12:09 | XMS_ITS | Encounter Summary ---
Author Organization [facility] Address [address] [place] [address] Care Team Providers Care Management Developer Name Role Phone Ame Morley Primary Care Provider [phone] Andrés Wong MD Primary Care Provider [phone] Reason for Referral * Consultation (Routine) - Authorized Specialty Diagnoses / Procedures Referred By Contac t Referred To Contact Neurology Diagnoses Seizure disorder (CMS/HCC) Andrés Wong MD [address] [address] Phone: tel: fax: Referral ID Status Reason Start Date Expiration Date Visits Requested Visits Authorized [id number] Authorized Specialty Services Required 05/17/2025 11/16/2026 1 1 Encounter Details Date Type Department Care Team ([facility] st Contact Info) Description 05/17/2025 [facility] [address] [place] [address] Andrés Wong MD [address] [address] Seizure disorder (CMS/HCC) (Primary Dx) Social History Tobacco Use Types Packs/Day Years Used Date Smoking Tobacco: Former Cigarettes 1 3 Smokeless Tobacco: Current Comments:Vape Alcohol Use Standard Drinks/Week Comments Not Currently 0 (1 standard drink = 0.6 oz pur e alcohol) Comments No Sex and Gender Information Value Date Recorded Sex Assigned at Not on file Legal Sex Female 7:16 PM EDT Gender Identity Not on file Sexual Orientation Not on file documented as of this encounter Plan of Treatment Upcoming Encounters Date Type Department Care Team (Late st Contact Info) Description 10/05/2025 10:00 AM EST Consult [place] [facility] [address] [place] [address] Kenyatta Wilkins MD [address] [place] [address] Scheduled Referrals Name Type Priority Associated Diagnoses Order Schedule Ambulatory referral to Neurology Outpatient Referral Routine Seizure disorder (CMS/HCC) Expected: 05/17/2025 (Approximate), Expires: 11/18/2026 documented as of this encounter Visit Diagnoses Diagnosis Seizure disorder (CMS/HCC)- Primary Unspecified epilepsy without mention of intractable epilepsy documented in this encounter Additional Health Concerns Assessment Noted Time A Body Mass Index follow-up plan has been documented for the patient 06/13/2023 3:49 PM EDT documented as of this encounter Care Teams Management Developer Relationship Specialty Start Date End Date Ame Morley PA [address] [place] [address] PCP - General 06/13/23 05/23/25 Andrés Wong MD [address] [place] [address] [address] [place] [address] PCP - General 05/24/25 documented as of this encounter
--- OUTSIDE RECORDS SUMMARY | 2025-09-22 12:09 | XMS_ITS | Clinical Summary ---
Author Organization [facility] Address [address] [place] [address] Care Team Providers Care Relay Dispatcher Name Role Phone Provider, No Known Primary Care Provider Unavail able Social History Tobacco Use Types Packs/Day Years Used Date Smoking Tobacco: Never Assessed Abuse Screen Answer Date Recorded Unsafe at Home or Work/School Not on file Feels Threatened by Someone? Not on file 08/2023 Does Anyone Keep You from Co ntacting Others or Doint Things Outside the Home? Not on file 09/08/2023 Physical Sign of Abuse Present Not on file 1 Housing Stability Answer Date Recorded Current Living Arrangements Not on file 08/2023 Potentially Unsafe Housing Conditions Not on rosie e 09/08/2023 Family and Community Support Answer Darion e Recorded Help with Day-to-Day Activities Not on file 09/08/2023 Lonely or Isolated Not on file 09/08/2023 Employment Answer Date Recorded Do you want help finding or keeping work or a kane b? Not on file 09/08/2023 Disabilities Answer Date Recorded Concentrating, Remembering, or Making Decisions Difficulty Not on file 09/08/2023 Doing Errands Independently Difficulty Not on fi le 09/08/2023 Education Answer Date Recorded Help with school or training? Not on file Preferred Language Not on file 09/08/2023 Comments Unknown Sex and Gender Information Value Date Recorded Sex Assigned at Not on file Legal Sex Female 11:29 AM EDT Gender Identity Not on file Sexual Orientation Not on file Plan of Treatment Upcoming Encounters Date Type Department Care Team (Late st Contact Info) Description 11/03/2025 10:00 AM EST Office Visit [facility] [address] [place] [address] Larisa Pacheco MD [address] [facility] [address] [id number] Health Maintenance Due Date Last Done Comments ANNUAL PHYSICAL 1999 Annual Gynecologic Pelvic an d Breast Exam 1999 HEPATITIS C SCREENING 1999 HPV VACCINES (1 - 3-dose series) 2014 TDAP/TD VACCINES (1 - Tdap) 2018 INFLUENZA VACCINE 07/01/2025 Pneumococcal Vaccine 0-49 Aged Out No longer eligible based on patient's age to complete this topic Insurance [facility] [address] Care Teams Relay Dispatcher Relationship Specialty Start Date End Date Provider, No Known [facility] [place] [address] PCP - General 05/03/25
--- OUTSIDE RECORDS SUMMARY | 2025-09-22 12:09 | XMS_ITS | Clinical Summary ---
Author Organization Healthcare Address [address] [place] [address] Care Team Providers Care Chronic Disease Epidemiologist Name Role Phone Andrés Wong MD Primary Care Provider Allergies Active Allergy Reactions Criticality Noted Date Comments Latex Rash Low 04/01/2019 Medications busPIRone (Buspar) 15 MG tablet Take 0.5 tablets (7.5 mg) by mouth. 3 Active Vraylar 4.5 MG capsule Take by mouth 1 (one) time each day. 3 Active gabapentin (Neurontin) 300 MG capsule 3 Active levETIRAcetam (Keppra) 1000 MG tablet 3 Active levonorgestrel (Mirena) 20 MCG/DAY IUD 1 each by Intrauterine route. 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 Family History Medical History Relation Name Comments No Known Problems Daughter No Known Problems Father No Known Problems Mother Relation Name Status Comments Daughter Father Mother Social History Tobacco Use Types Packs/Day Years Used Date Smoking Tobacco: Former Cigarettes 1 3 Smokeless Tobacco: Current Tobacco Cessation:Ready to Q uit: Not Asked; Counseling Given: Not Answered Comments:Vape Alcohol Use Standard Drinks/Week Comments Not Currently 0 (1 standard drink = 0.6 oz pur e alcohol) Comments No Sex and Gender Information Value Date Recorded Sex Assigned at Not on file Legal Sex Female 7:16 PM EDT Gender Identity Not on file Sexual Orientation Not on file Last Filed Vital Signs Vital Sign Reading Time Taken Comments Blood Pressure 114/77 06/13/2023 3:26 PM EDT Pulse 92 06/13/2023 3:26 PM EDT Temperature 36.9 C (98.5 F) 06/13/2023 3:26 PM EDT Respiratory Rate 14 06/13/2023 3:26 PM EDT Oxygen Saturation 98% 06/13/2023 3:26 PM EDT Inhaled Oxygen Concentration - - Weight 78.8 kg (173 lb 11.6 oz) 06/13/2023 3:26 PM EDT Height 154.9 cm (5' 1 ) 06/13/2023 3:26 PM EDT Body Mass Index 32.82 06/13/2023 3:26 PM EDT Plan of Treatment Upcoming Encounters Date Type Department Care Team (Late st Contact Info) Description 10/05/2025 10:00 AM EST Consult [place] [facility] [address] [place] [address] Kenyatta Wilkins MD [address] [place] [address] Health Maintenance Due Date Last Done Comments [facility]-Depression Screening 1999 [facility]-HIV Screening 1999 [facility]-/Child/Adol SDOH Screenings 1999 [facility]-Hepatitis A Vaccines (2 of 2 - 2-dose series) 01/17/2013 07/17/2012 [facility]- SDOH Screenings 2017 [facility]-Adult SDOH Screenings 2017 [facility]-Pap Smear 2020 [facility]-DTaP,Tdap,and Td Vaccines (7 - Td or Tdap) 07/17/2022 07/17/2012, 03/16/2004, 06/02/2001, Additional history exists [id number] Vaccine ( season) 2025 [facility]-Influenza Vaccine (#1) 08/01/202511/04, 07/17/2012, 09/20/2010 [facility]-Zoster Vaccines (1 of 2) 2049 07/17/2012, 12/06/2005 [facility]-Hepatitis B Vaccines Completed 000, 03/31/2000, 01/30/2000 [facility]-Pneumococcal Vaccine: Pediatrics (0 to 5 Years) and At-Risk Patients (6 to 49 Years) Aged Out 03/03/2001, 08/26/2000, 06/20/2000, Additional history exists No longer eligible based on patient's age to complete this topic [facility]-HIB Vaccines Completed 06/02/2001, , 03/31/2000, Additional history exists [facility]-IPV Vaccines Completed 03/16/2004, 01/2001, 03/31/2000, Additional history exists [facility]-Varicella Vaccines Completed 07/17/2012, 2005 HPV Vaccines Completed 02/27/2016, 07/17/2012 [facility]-Hepatitis C Screening Completed 04/01/2019 [facility]-Obesity Intervention Completed 06/13/2023 [facility]-Rotavirus Vaccines Aged Out No lo nger eligible based on patient's age to complete this topic Procedures Procedure Name Priority Date/Time Associated Diagnosis Comments HEPATITIS C ANTIBODY - ED W/REFLEX TO HCV QUANT PCR Routine 04/01/2019 4:12 PM EDT from Last 3 Months or Most Recently Relevant to Health Maintenance Results * Vinod Hepatitis C Antibody (04/01/2019 4:12 PM EDT) Vinod Hepatitis C Ab NEGATIVE Reference Range: Negative SUNQUEST 04/01/2019 4:12 PM EDT 04/01/2019 4:28 PM EDT us Carol Zavala MD LAB BLOOD ORDERABLES Final R esult SUNQUEST from Last 3 Months or Most Recently Relevant to Health Maintenance Insurance [employer] [facility] MEDICAID Care Teams Chronic Disease Epidemiologist Relationship Specialty Start Date End Date Andrés Wong MD [address] [facility] [address] [place] [address] PCP - General 05/24/25
--- NOTE | 2025-09-22 13:30 | US_ITS ---
PROCEDURE: US TRANSVAGINAL CLINICAL INDICATION: iud placement COMPARISON: No exams were available for comparison FINDINGS: Transvaginal sonographic images of the pelvis were obtained. UTERUS: 8.2cm x 5.2cmx 3.8 cm. Anteverted with a combined endometrial thickness of 4.8mm. There is an IUD within the uterine cavity in the correct position. LEFT OVARY: 2.5cmx1.6 cmx2.1cm with a volume of 4.3ml. There are multiple small peripheral follicles. RIGHT OVARY: 3.3cmx 2.2cmx2.4cm with a volume of 9.1ml. There are multiple small peripheral follicles. Both ovaries are seen and appear polycystic. Doppler flow to both ovaries are seen. There is trace fluid in the cul-de-sac. IMPRESSION: 1. Anteverted uterus normal in shape and size. The endometrium is thin measuring 4.8 mm. 2. There is an IUD within the uterine cavity in the correct position. 3. Both ovaries are seen and appear polycystic. 4. There is trace fluid in the cul-de-sac. Dictated by: Michael Ritter MD 09/22/2025 15:44 Michael Ritter MD in OV 09/22/2025 15:44
== END 2025-09-22 23:59 | disposition home or self-care (01) ==
LOC: RAD 12:07
PROVIDERS: PCP Obstetrics & Gynecology; Visit Provider Obstetrics & Gynecology
DX: E28.2 Polycystic ovarian syndrome (principal); R10.20 Pelvic and perineal pain unspecified side; N85.4 Malposition of uterus; Z30.430 Encounter for insertion of intrauterine contraceptive device
CPT/HCPCS: 76830